=== PATIENT | female | born 1995 | race Caucasian/White ===

== ENCOUNTER 2020-01-11 00:54 | Outpatient (CLI) | payer OTHER, SELFPAY ==
[2020-01-11 18:05] LABS: SARS-CoV-2 RNA PCR Negative
== END 2020-01-11 00:55 | disposition home or self-care (01) ==
LOC: ANHCOVIDDT 00:55
PROVIDERS: PCP Internal Medicine; Visit Provider Internal Medicine Gastroenterology
DX: Z01.818 Encounter for other preprocedural examination (principal); Z11.59 Encounter for screening for other viral diseases
CPT/HCPCS: 87635; C9803; U0003

== ENCOUNTER 2020-01-14 03:50 | Day surgery (SDC) | payer OTHER, SELFPAY ==
[2020-01-09 13:26] VITALS: BMI 21.2
[2020-01-14 07:15] VITALS: BP 113/81; PULSE 72; RESP 16; TEMP 37.1; O2SAT 99
--- NOTE | 2020-01-14 07:30 | PM.HPGS ---
History of Present Illness History of Present Illness Consent: Risks, benefits, and alternatives have been discussed and questions answered. Patient agrees to proceed with procedure. Chief complaint: REFLUX Narrative: Annalise Renteria is a 24 year old W female referred for gastroscopy secondary to a history of gastroesophageal reflux disease. Patient has primary complaint is she has episodes of persistent coughing which will lead to a gagging and intermittent vomiting. She does not have classical history of reflux with substernal burning postprandially. She was placed on Pepcid without significant improvement. She states these episodes can occur any time the day if she eats that she does any concur which impresses or teeth. She has had no hematemesis. Denies any nonsteroidal inflammatory drugs. She denies any dysphagia odynophagia. No weight loss. [facility] Past Medical History Medical History Anxiety Asthma Bipolar depression Depression Factor 5 Leiden mutation, heterozygous Stomach problems Surgical History Surgical History [place] teeth removed Social History Social History (Updated 01/10/20 @ 07:41 by Radhika Carrillo CMA) Smoking status: Never smoker Second hand tobacco smoke exposure: No Alcohol intake: current Meds Home Medications and Allergies Home Medications Medication Instructions Recorded Confirmed Type lamotrigine 100 mg tablet 200 mg PO DAILY 07/24/19 01/09/20 History clonazepam 1 mg tablet 1 mg PO BID tablet 11/29/19 01/09/20 History famotidine 20 mg tablet 20 mg PO DAILY #14 tablet 11/29/19 01/09/20 Rx trazodone 100 mg tablet 100 mg PO DAILY tablet 11/29/19 01/14/20 History aspirin 81 mg PO DAILY 01/09/20 01/09/20 History sertraline 50 mg PO DAILY 01/09/20 01/09/20 History Allergies Allergy/AdvReac Type Severity Reaction Status Date / Time azithromycin Allergy Unknown Unknown Verified 01/14/20 07:13 cefuroxime Allergy Unknown Unknown Verified 01/14/20 07:13 No Known Allergies Allergy Unverified 03/28/17 08:53 Vital Signs Vital Signs - 24 hr 01/14/20 07:15 Temperature 37.1 C Pulse Rate 72 Respiratory Rate 16 Blood Pressure 113/81 Pulse Oximetry 99 Exam Const: Orientation/consciousness: patient oriented x3 Resp: Auscultation: clear to auscultation bilaterally Cardio: Rate: regular rate Rhythm: regular rhythm Heart sounds: no murmurs GI: GI Palp: Yes Soft to palpation, No Tenderness to palpation present (GI), Yes No hepatosplenomegaly present and No Palpable mass present Auscultation: normal bowel sounds Neuro: General: patient oriented x3 and no focal motor deficits Extrem: General: no pedal edema Assessment and Plan Additional Plan EGD for evaluation of coughing and gagging questionable gastroesophageal reflux disease.
[2020-01-14] MEDS: LACTATED RINGERS 1,000 ML 150 ML IV CONT ×2 (07:38→08:52)
--- NOTE | 2020-01-14 08:25 | P.PNAN_ITS ---
Anes - Initial Pre Proc Eval Procedure: Operation Date: 01/14/20 08:30 Proposed Procedures p Esophagogastroduodenoscopy - Kenneth Contreras MD Date/Time: 01/14/20 08:25 Surgeon: Kenneth Contreras MD Pre Op Diagnosis: REFLUX Patient Data Age: 24 Gender: F Height: 5 ft 7 in Weight: 61.9 kg Last Vital Signs Temp 98.7 F 01/14/20 07:15 Pulse 72 01/14/20 07:15 Resp 16 01/14/20 07:15 BP 113/81 01/14/20 07:15 Pulse Ox 99 01/14/20 07:15 Allergies Allergy/AdvReac Type Severity Reaction Status Date / Time azithromycin Allergy Unknown Unknown Verified 01/14/20 07:13 cefuroxime Allergy Unknown Unknown Verified 01/14/20 07:13 No Known Allergies Allergy Unverified 03/28/17 08:53 Home Medications Medication Instructions Recorded Confirmed Type lamotrigine 100 mg tablet 200 mg PO DAILY 07/24/19 01/09/20 History clonazepam 1 mg tablet 1 mg PO BID tablet 11/29/19 01/09/20 History famotidine 20 mg tablet 20 mg PO DAILY #14 tablet 11/29/19 01/09/20 Rx trazodone 100 mg tablet 100 mg PO DAILY tablet 11/29/19 01/14/20 History aspirin 81 mg PO DAILY 01/09/20 01/09/20 History sertraline 50 mg PO DAILY 01/09/20 01/09/20 History Patient hx anesthesia problems: none Family hx anesthesia problems: none PMFSH Past Medical History Medical History Anxiety Asthma Bipolar depression Depression Factor 5 Leiden mutation, heterozygous Stomach problems Surgical History Surgical History [place] teeth removed Social History Social History (Updated 01/10/20 @ 07:41 by Radhika Carrillo CMA) Smoking status: Never smoker Second hand tobacco smoke exposure: No Alcohol intake: current Anes - Eval Final PreProcedure Day of Procedure 01/14/20 08:25 Patient weight: normal Heart: regular rate and rhythm Lungs: clear to auscultation Airway: Mallampati scale class II Neurological: alert and oriented Last oral intake: >/= 8 hours ASA classification: II Emergent: no Anesthetic plan: proceed Anesthesia type and monitoring: general GIVS and standard monitoring Informed Consent: The patient's anesthetic plan and its attendant risks and benefits were discussed with the patient/family/POA. Questions were solicited and answers provided to the satisfaction of the patient/family/POA.
[2020-01-14] MEDS: BENZOCAINE (*SP) 60 ML SPRAY CAN (HURRICAINE) 1 SPRAY MUCOUS MEM (08:42)
[2020-01-14 08:53] VITALS: BP 88/54; PULSE 62; RESP 24; O2SAT 95
[2020-01-14 09:03] VITALS: BP 85/48; PULSE 61; RESP 22; O2SAT 96
[2020-01-14 09:13] VITALS: BP 104/66; PULSE 51; RESP 18; O2SAT 100
[2020-01-14 09:23] VITALS: BP 112/64; PULSE 51; RESP 20; O2SAT 100
== END 2020-01-14 09:32 | disposition home or self-care (01) ==
PROVIDERS: PCP Internal Medicine; Visit Provider Internal Medicine Gastroenterology
PROC: 0DJ08ZZ Inspection of Upper Intestinal Tract, Via Natural or Artificial Opening Endoscopic (ICD-10-PCS; CPT 43235; principal; 2020-01-14 08:30)
DX: K21.9 Gastro-esophageal reflux disease without esophagitis (principal); K29.50 Unspecified chronic gastritis without bleeding; D68.51 Activated protein C resistance; J45.909 Unspecified asthma, uncomplicated; F31.9 Bipolar disorder, unspecified; F41.9 Anxiety disorder, unspecified; Z79.82 Long term (current) use of aspirin
CPT/HCPCS: 43239; 87081; 88305; J2704; J7120

== ENCOUNTER 2020-01-15 15:17 | Emergency (ER) | payer OTHER, SELFPAY ==
[2020-01-15 15:26] VITALS: BP 109/71; PULSE 79; RESP 16; TEMP 36.7; O2SAT 98
--- NOTE | 2020-01-15 15:55 | ED.GENADULT ---
HPI - General Adult General Chief complaint: Wound/Laceration Stated complaint: FB R HAND/COUGH/SNEEZING/EARACHE Time Seen by Provider: 01/15/20 15:35 Source: patient and RN notes reviewed Mode of arrival: ambulatory Limitations: no limitations History of Present Illness HPI narrative: 24 year old female who presents to [facility] with complaints of sore throat, coughing and sneezing which started today and also complaints of possible foreign body to palm of her right hand from fall about a month ago. Patient had endoscopy yesterday and states that she was told that soreness in her throat along with sneezing and cough are not related to procedure. Patient has seen PCP in regards to right hand in the past 2 weeks also. Patient states that she also has some ear pressure and and sinus drainage. Patient has had recent negative COVID test.Patient admits to history of seasonal allegies. MD complaint: sore throat, sneezing, coughing, ear pressure and sinus drainage. Onset (ago): day(s) (1) Location: mouth Radiation: non-radiation Severity: mild Quality: aching Relieving factors: none Exacerbating factors: other (swallowing) Associated symptoms: cough and other (sneezing) Treatments prior to arrival: none Related Data Home Medications Medication Instructions Recorded Confirmed clonazepam 1 mg tablet 1 mg PO BID tablet 11/29/19 01/15/20 trazodone 100 mg tablet 100 mg PO DAILY tablet 11/29/19 01/15/20 sertraline 50 mg PO DAILY 01/09/20 01/15/20 Allergies Allergy/AdvReac Type Severity Reaction Status Date / Time azithromycin Allergy Unknown Unknown Verified 01/14/20 07:13 cefuroxime Allergy Unknown Unknown Verified 01/14/20 07:13 No Known Allergies Allergy Unverified 03/28/17 08:53 Review of Systems Review of Systems: Narrative: CONSTITUTIONAL: Denies fever, chills, or sweats. EYES: Denies visual changes, redness, or discharge. ENT: positive reported rhinorrhea, congestion, sore throat, or otalgia. CARDIOVASCULAR: Denies chest pain, palpitations, or edema. RESPIRATORY:reported cough denies dyspnea. GASTROINTESTINAL: Denies abdominal pain, nausea, vomiting, or diarrhea. GENITOURINARY: Denies dysuria or hematuria. SKIN: Denies rash or itching, scabbed area pinpoint in size to proximal palm area of right hand. MUSCULOSKELETAL: Denies back pain, joint pain, or myalgia. NEUROLOGIC: Denies headache, numbness, or weakness. PSYCHIATRIC:positive anxiety or depression. All systems reviewed & are unremarkable except as noted in HPI and below PMFSH Past Medical History Medical History Anxiety Asthma Bipolar depression Depression Factor 5 Leiden mutation, heterozygous Stomach problems Surgical History Surgical History [place] teeth removed Family History Family History Mother Patient's mother is in good health Family history of hemochromatosis Father Patient's father is in good health Social History Social History Smoking status: Never smoker Second hand tobacco smoke exposure: No Alcohol intake: current Gender identity (if verbalized by the patient): Female Comments At time of signature, agree with nursing past medical, surgical, social and family history. There is no relevant family history pertinent to the presenting complaint Exam Narrative: Exam Narrative: GENERAL: Well-appearing, well-nourished, and in no acute distress. HEAD: Normocephalic, atraumatic. EYES: PERRLA and EOMI. ENT: Nares light red, clear rhinorrhea no epistaxis. Mucous membranes moist.TM's normal with good light refles, throat mild redness no exudates or acute tonsil enlargement NECK: Supple.no lymphadenopathy CHEST: Clear to auscultation. No respiratory distress.SAO2 98% on room air. HEART: Regular rate and rhythm. No murmu
== END 2020-01-15 16:08 | disposition home or self-care (01) ==
PROVIDERS: Emergency Provider Registered Nurse; PCP Internal Medicine
DX: J31.0 Chronic rhinitis (principal); J32.9 Chronic sinusitis, unspecified; F41.9 Anxiety disorder, unspecified; F32.9 Major depressive disorder, single episode, unspecified; D68.51 Activated protein C resistance
CPT/HCPCS: 87081; 87880; 99213; G0463

== ENCOUNTER 2020-02-29 07:36 | Outpatient (CLI) | payer OTHER, SELFPAY ==
--- NOTE | 2020-03-05 18:06 | WPDPFTINT ---
PFT Interpretation PFT Interpretation: DOS:02/29/2020] REQUESTING: Juliette Mensah NP REASON FOR TESTING: fatigue, dyspnea PULMONARY FUNCTION TESTS Results are reproducible. The patient declined plethysmography due to anxiety. She took a Xanax immediately before testing. The tech reported good effort from the patient. Spirometry: FEV1 is 55%, moderately decreased. FVC 53%, moderately decreased. FEV1% is normal. No change with bronchodilator. Lung volumes: NOT PERFORMED Diffusion: DLCO 69%, mildly decreased. Flow volume loop: Overall small in size, suggestive of restriction. IMPRESSION: Spirometry shows a moderate ventilatory defect without airflow obstruction, and this abnormal finding may be due to restriction. However, without plethysmography, restriction cannot be assessed. Lung volumes were not obtained due to the patient having anxiety with inability to get in the body box. Mild diffusion impairment. Clinical correlation will be challenging without lung volumes. Consider having the patient take an anxiolytic earlier if this test is repeated. She took Xanax immediately before testing, which may not have given the medication time to work. Consider chest CT, 6 minute walk, and echo to assist in evaluation of her fatigue and dyspnea especially if repeat testing is not an option for her. Missy Willis MD
== END 2020-02-29 07:37 | disposition home or self-care (01) ==
PROVIDERS: PCP Internal Medicine; Visit Provider Clinical Nurse Specialist
DX: R06.02 Shortness of breath (principal)
CPT/HCPCS: 94060; 94729

== ENCOUNTER 2020-03-28 15:58 | Outpatient (CLI) | payer OTHER, SELFPAY ==
--- NOTE | ~2020-03-28 | CT_ITS ---
EXAMINATION: CT chest w con DATE: 03/28/2020 16:44 INDICATION: Shortness of breath TECHNIQUE: Transaxial computed tomographic images of the chest were obtained after the administration of 75 cc of Omnipaque 350 intravenous contrast. The dose-length product (DLP) was 118.36 mGy-cm. Ite rative reconstruction was used. COMPARISON: None FINDINGS: The lungs are free of acute opacities. There is no pleural effusion or pneumothorax. No pat hologically enlarged thoracic lymph nodes are identified. The heart size is normal. The visualized os seous structures are unremarkable. IMPRESSION: 1. No acute cardiopulmonary abnormality. Reviewed, dictated and finalized at location A.
== END 2020-03-28 15:59 | disposition home or self-care (01) ==
PROVIDERS: PCP Internal Medicine; Visit Provider Clinical Nurse Specialist
DX: R06.00 Dyspnea, unspecified (principal)
CPT/HCPCS: 71260; Q9967

== ENCOUNTER 2020-04-17 07:38 | Outpatient (CLI) | payer OTHER, SELFPAY ==
--- NOTE | 2020-04-17 07:58 | ECHO_ITS ---
Patient Info Name: Annalise Renteria Age: 24 years : 1995 Gender: Female Ht: 67 in Wt: 125 lbs BSA: 1.63 m2 HR: 68 bpm BP: 107 / 76 mmHg Technical Quality: Good Exam Date: 04/17/2020 8:36 AM Exam Location: [facility] Patient Status: Outpatient Admit Date: 04/17/2020 Staff Ordering Physician: Juliette Mensah Gasoline Attendant: Ana Luisa Pickering RDCS Attending Provider: Juliette Mensah Referring Physician: Makenna VILLAFUERTE; Exam Type: CA echo doppler color flow Study Info Indications - sob Complete two-dimensional, color flow and Doppler transthoracic echocardiogram is performed. Summary 1. Complete two-dimensional, color flow and Doppler transthoracic echocardiogram is performed. 2. Left ventricular chamber dimension is normal. 3. Left ventricular systolic function is normal, estimated at 60-65%. 4. The left ventricular diastolic function is normal. 5. E/e' 7 is not elevated. 6. There is trace tricuspid valve regurgitation. 7. No pulmonary hypertension, estimated pulmonary arterial systolic pressure is 29 mmHg. 8. There is trace pulmonic regurgitation. Left Ventricle E/e' 7 is not elevated. Left ventricular chamber dimension is normal. Left ventricular systolic function is normal, estimated at 60-65%. The left ventricular diastolic function is normal. Right Ventricle Right ventricular chamber dimension is normal. Right ventricular systolic function is normal. Left Atria Left atrial chamber dimension is normal. Right Atria Right atrial chamber dimension is normal. Aortic Valve The aortic valve is trileaflet. There is no aortic valve stenosis. There is no aortic valve regurgitation. Pulmonic Valve There is trace pulmonic regurgitation. Mitral Valve There is no mitral valve stenosis. There is no mitral valve regurgitation. Tricuspid Valve There is trace tricuspid valve regurgitation. No pulmonary hypertension, estimated pulmonary arterial systolic pressure is 29 mmHg. Pericardium/Pleural There is no pericardial effusion. Inferior Vena Cava Normal inferior vena cava with >50% collapse upon inspiration consistent with normal right atrial pressure, 5 mmHg. Aorta The aortic root size at the sinus of Valsalva is normal. Left Ventricular Outflow Tract Name Value Normal LVOT 2D LVOT Diameter 2.0 cm LVOT Doppler LVOT Peak Gradient 4 mmHg LVOT Mean Gradient 2 mmHg LVOT VTI 20 cm LVOT VTI/AV VTI Ratio 0.9 LVOT Stroke Volume 63 ml LVOT CO 13.3 l/min LVOT CI 8.1 l/min/m2 Pulmonic Valve Name Value Normal RVOT Doppler RVOT Peak Gradient 3 mmHg PV Do
--- NOTE | 2020-04-23 10:46 | WPDSIXMINUTE ---
Six Minute Walk Six Minute Walk: The patients O2 sats started at 100% and dropped as low as 93% Total walk distance 487.68 meters conclusion: This patient does not qualify for home oxygen therapy
== END 2020-04-17 07:39 | disposition home or self-care (01) ==
LOC: ANHPFT 07:40
PROVIDERS: PCP Internal Medicine; Visit Provider Clinical Nurse Specialist
DX: R06.02 Shortness of breath (principal)
CPT/HCPCS: 93306; 94618

== ENCOUNTER 2021-04-13 13:14 | Outpatient (CLI) | payer BC, SELFPAY ==
--- NOTE | ~2021-04-13 | XR_ITS ---
XR chest 2V DATE: 04/13/2021 14:04 INDICATION: Cough TECHNIQUE: Upright 2 views COMPARISON: 03/28/2020 CT chest 10/06/11 two-view chest FINDINGS: There is mild patchy infiltrate in the left lower lung, consistent with pneumonia. Normal heart size. No hilar or mediastinal enlargement. No pleural effusion or pneumothorax. IMPRESSION: Patchy left lower lung infiltrate, likely due to pneumonia Reviewed, dictated and finalized at location B.
== END 2021-04-13 13:15 ==
PROVIDERS: PCP Internal Medicine; Visit Provider Nurse Practitioner
DX: R05.9 Cough, unspecified (principal); R91.8 Other nonspecific abnormal finding of lung field
CPT/HCPCS: 71046

== ENCOUNTER 2022-02-25 08:22 | Outpatient (CLI) | payer OTHER, SELFPAY ==
--- NOTE | ~2022-02-25 | NM_ITS ---
EXAMINATION: NM hepatobiliary wo pharm DATE: 02/25/2022 10:51 INDICATION: Abdominal pain and bloating. COMPARISON: CT abdomen and pelvis 04/07/2017 TECHNIQUE: 4.9 mCi Tc-99m mebrofenin (Choletec) was administered intravenously. Scintigraphic images of the abdomen were obtained for one hour. Then, the patient drank 8 oz Ensure, and imaging was cont inued for 60 minutes. FINDINGS: There is normal clearance of radiotracer from the blood pool. There is homogeneous tracer u ptake by the liver. Activity progresses to the bowel and gallbladder. Gallbladder ejection fraction (GBEF) was 95%. Note that with this technique, normal GBEF >= 33%. IMPRESSION: 1. Normal hepatobiliary scintigraphy. Reviewed, dictated and finalized at location A.
== END 2022-02-25 08:23 | disposition home or self-care (01) ==
PROVIDERS: PCP Internal Medicine; Visit Provider Nurse Practitioner Family
DX: R10.9 Unspecified abdominal pain (principal); R14.0 Abdominal distension (gaseous)
CPT/HCPCS: 78226; A9537

== ENCOUNTER 2024-12-15 14:15 | Inpatient (IN) | payer OTHER, SELFPAY ==
[2024-12-15] VITALS (9 sets, daily range): BP systolic 114–124; BP diastolic 70–84; PULSE 108–129; RESP 18–25; TEMP 37–37.1; O2SAT 94–100; BMI 21.3
--- NOTE | ~2024-12-15 | XR_ITS ---
Supine and upright views of the abdomen Clinical history: Gastric distention Findings: NG tube in place. Bowel gas pattern is nonspecific. No evidence for obstruction or free air . No abnormal mass lesion or calcification is seen. Urinary bladder distended with contrast material. Osseous structures are intact. Impression: Nonspecific bowel gas pattern. NG tube in place. Reviewed, dictated and finalized at [facility]. Impression: Nonspecific bowel gas pattern. NG tube in place.
--- NOTE | ~2024-12-15 | XR_ITS ---
CHEST RADIOGRAPH, PA AND LATERAL CLINICAL HISTORY: chest pain, sob 2 DAYS . COMPARISON: 04/13/2021 TECHNIQUE: PA and lateral views of the chest. FINDINGS Significant gaseous distention of the stomach extending into the air-filled esophagus. The cardiomediastinal silhouette is partially obscured. Large right-sided pleural effusion is present with adjacent consolidation. The left hemithorax is largely clear. IMPRESSION: Large right-sided pleural effusion with adjacent consolidation. Reviewed, dictated and finalized at location A.
--- NOTE | ~2024-12-15 | XR_ITS ---
Portable chest x-ray Comparison: 12/15/2024 Clinical History: Pleural effusion Findings: NG tube in place. Large right pleural effusion present. There is mild haziness left lung b ase. Cardiomediastinal silhouette is stable. Bones and soft tissues are unremarkable. Impression: Large right pleural effusion. Minimal haziness left lung base, nonspecific. NG tube in place. Reviewed, dictated and finalized at location . Impression: Large right pleural effusion. Minimal haziness left lung base, nonspecific. NG tube in place.
--- NOTE | ~2024-12-15 | XR_ITS ---
Portable chest x-ray Comparison: 12/16/2024 Clinical History: Worsening shortness of breath Findings: There is complete opacification the right hemithorax, compatible with large pleural effusi on and mild leftward mediastinal shift. Left lung essentially clear. NG tube in place. Cardiomediast inal silhouette is stable. Bones and soft tissues are unremarkable. Impression: Whiteout of the right hemithorax, most compatible with large pleural effusion. NG tube in place. Reviewed, dictated and finalized at location M. Impression: Whiteout of the right hemithorax, most compatible with large pleural effusion. NG tube in place.
--- NOTE | ~2024-12-15 | CT_ITS ---
CLINICAL INDICATION: Right-sided chest pain. COMPARISON: 03/28/2020 and 04/07/2017 . TECHNIQUE: An enhanced CT of the abdomen and pelvis was performed utilizing multislice spiral [employer] ue reconstructed at 5 mm slice thickness. Coronal and sagittal reconstructions were performed. This CT examination was performed utilizing dose reduction techniques. DLP: 500 mGy-cm FINDINGS/OBSERVATIONS: Lung: Heterogeneous consolidation encompassing the entirety of the right middle lobe. Large right-sided pleural effusion with adjacent compressive atelectasis. The left hemithorax demonstrates interstitial thickening but is otherwise clear. The heart is of normal size, without pericardial effusion. Mediastinum: Calcified lymph nodes within the mediastinum suggesting prior granulomatous disease. No pathologically enlarged or morphologically suspicious lymph nodes are identified within the medias tinum, bilateral axilla, within the soft tissues of the anterior chest wall. Soft tissues of the chest: Unremarkable. Bones of the chest: No acute fracture. No lytic or blastic lesions are identified. Liver: The liver enhances homogeneously and is enlarged measuring 20 cm in longitudinal dimension. Gallbladder and biliary system: The gallbladder is only minimally distended and otherwise unremarkable. Pancreas: The pancreas enhances homogeneously, without ductal dilatation. Spleen: Spleen enhances homogeneously and is not enlarged Kidneys: The bilateral kidneys enhance symmetrically without hydronephrosis or renal calculi. Adrenal glands: Unremarkable. Gastrointestinal tract: Massive gaseous distention of the stomach without a clear source of obstruction. The air-filled esophagus is also distended. Trace fecal stasis. Appendix: The appendix is not definitively visualized. However, no pericecal inflammatory change is identified suggest the presence of acute appendicitis. Vasculature: No calcified atherosclerotic disease is present. No aneurysmal dilatation. Lymph nodes: Scattered nonpathologically enlarged lymph nodes within the root of the mesentery and deep in the pel vis. Pelvic structures: The bladder is decompressed and otherwise unremarkable. Uterus is anteverted and anteflexed Body wall and musculoskeletal: Small fat-containing umbilical hernia. No significant degenerative disease within the lower thoracic and lumbar spines. IMPRESSION: Right middle lobe pneumonia with a large right-sided pleural effusion. Massive gaseous distention of the stomach Reviewed, dictated and finalized at location A.
--- NOTE | ~2024-12-15 | XR_ITS ---
Exam: Abdomen 1V HISTORY: post NG placement COMPARISON: Plain film evaluation of the chest performed 3 hours earlier TECHNIQUE: Supine images of the lower chest and upper abdomen FINDINGS: Nasogastric tube projects over the distal esophagus for which advancement of approximately 12 cm is r ecommended for optimal radiographic placement. IMPRESSION: Nasogastric tube at the level of the distal esophagus for which advancement of approximately 12 cm is recommended for optimal radiographic placement. Reviewed, dictated and finalized at location A.
--- OUTSIDE RECORDS SUMMARY | 2024-12-15 14:17 | XMS_ITS | Clinical Summary ---
Author Organization [facility] Address [address] [place] [address] Care Team Providers Care Course Developer Name Role Phone Victorino Briseno DO Primary Care Provider [phone]- [phone] Allergies No known active allergies Medications medroxyPROGESTERo ne (DEPO-PROVERA) 150 mg/mL injection INJECT INTRAMUSCULARLY EVERY 3 MONTHS 09/20/19 18 Active lamoTRIgine (LaMICtal) 25 mg tablet TAKE 1 TABLET BY MOUTH EVERY DAY AT 7PM 0 05/08/20 19 Active lithium 300 mg capsule TAKE 1 CAPSULE OPENED AND SPRINKLED ON FOOD TWICE A DAY 06/11/20 20 Active ALPRAZolam (NIRAVAM) 1 mg disintegrating tablet Take 1 mg by mouth 3 (three) times a day 05/23/20 20 Active dextroamphetamine -amphetamine (ADDERALL) 5 mg tablet Take 5 mg by mouth 2 (two) times a day 05/22/20 20 Active aspirin 81 mg enteric coated tablet Take 81 mg by mouth daily Active fluticasone propionate (FLOVENT HFA) 220 mcg/actuation inhaler Inhale 2 puffs 2 (two) times a day Rinse mouth with water after use. Do not swallow. 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 Attention deficit disorder of adult with hyperac tivity 06/14/2013 Atypical migraine 06/14/2013 Psychophysiological insomnia 05/08/2013 Increased frequency of urination 03/14/2012 Encounter for preventive health examination 02/02 Surgical History Surgery Date Site/Laterality Comments NO PAST SURGERIES Medical History Medical History Date Comments Hx Other Medical ADD; Comments: [facility] 04/26/2014 - Hx Other Medical narcolepsy; Com ments: [facility] 04/26/2014 - Hx Other Medical migraines; Comm ents: [facility] 04/26/2014 - Hx Other Medical palpitations; C omments: [facility] 04/26/2014 - Personal history of other di seases of the respiratory system History of asthma - (Added b y TW Conv) Personal history of other me ntal and behavioral disorders History of depression - (Add ed by TW Conv) ADHD (attention deficit hype ractivity disorder) Anxiety Depression Migraines Family History Medical History Relation Name Comments Mental illness Father Other Father Alive and well; Clotting disorder Mother Other Mother Alive and well; Sleep apnea Mother Sleep apnea; Other Sister 2 Alive and well; Relation Name Status Comments Father Alive Mother Alive Sister 1 Alive Sister 2 Social History Tobacco Use Types Packs/Day Years Used Date Smoking Tobacco: Never Smokeless Tobacco: Never Alcohol Use Standard Drinks/Week Comments No 0 (1 standard drink = 0.6 oz pur e alcohol) Personal Safety Answer Date Recorded Getting School Help Needed Not on file 09/02 Comments Unknown Sex and Gender Information Value Date Recorded Sex Assigned at Not on file 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 Gender Identity Not on file Sexual Orientation Not on file Obstetrics History Last Filed Vital Signs Vital Sign Reading Time Taken Comments Blood Pressure 106/68 07/30/2020 11:42 AM STRAP MAKING MACHINE OPERATOR Pulse 70 07/30/2020 11:42 AM STRAP MAKING MACHINE OPERATOR Temperature 36.9 C (98.5 F) 07/30/2020 11:42 AM STRAP MAKING MACHINE OPERATOR Respiratory Rate 18 07/30/2020 11:42 AM STRAP MAKING MACHINE OPERATOR Oxygen Saturation 99% 07/30/2020 11:42 AM STRAP MAKING MACHINE OPERATOR Inhaled Oxygen Concentration - - Weight 61.2 kg (135 lb) 11/27/2021 9:24 AM CDT Height 170.2 cm (5' 7) 11/27/2021 9:24 AM CDT Body Mass Index 21.14 11/27/2021 9:24 AM CDT Plan of Treatment Not on file Insurance [facility] Address: [id number] [place] [address] [facility]/PPO Address: [id number] [place] [id number] [facility] Care Teams Course Developer Relationship Specialty Start Date End Date Victorino Briseno DO PCP - General 05/08/19
--- OUTSIDE RECORDS SUMMARY | 2024-12-15 14:17 | XMS_ITS | Referral Summary ---
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 Gender Identity Not on file Sexual Orientation Not on file Last Filed Vital Signs Vital Sign Reading Time Taken Comments Blood Pressure 106/68 07/30/2020 11:42 AM ORDER SCHEDULE CLERK Pulse 70 07/30/2020 11:42 AM ORDER SCHEDULE CLERK Temperature 36.9 C (98.5 F) 07/30/2020 11:42 AM ORDER SCHEDULE CLERK Respiratory Rate 18 07/30/2020 11:42 AM ORDER SCHEDULE CLERK Oxygen Saturation 99% 07/30/2020 11:42 AM ORDER SCHEDULE CLERK Inhaled Oxygen Concentration - - Weight 61.2 kg (135 lb) 11/27/2021 9:24 AM CDT Height 170.2 cm (5' 7) 11/27/2021 9:24 AM CDT Body Mass Index 21.14 11/27/2021 9:24 AM CDT Plan of Treatment Not on file Insurance [facility] [place] [address] [place] [address] HMO Care Teams Learning And Development Specialist Relationship Specialty Start Date End Date Victorino Briseno DO PCP - General 05/08/19
--- OUTSIDE RECORDS SUMMARY | 2024-12-15 14:18 | XMS_ITS ---
Author Organization [facility] [employer] [facility] ([address]) Address [address] [place] [address] Care Team Providers Care Qa Developer Name Role Phone Van Briseno Primary Care Provider Unavailab Long Roche Unavailable [phone] [facility], Provider Unavailable Unavailab le REASON FOR VISIT [facility] Conversion Encounter Medications Medication SIG (Take, Route, Frequency, Duration) Notes Start Date End Date Status LaMICtal 200 MG 1 tab(s) orally 2 ti mes a day for 30 day(s) Active Aspirin 81 MG 1 tab(s) orally once a day for 30 day(s) Active Remeron 15 MG 1 tab(s) orally once a day (at bedtime) for 30 day(s) Active Fluticasone Propionate 50 MCG/ACT 2 spray(s) in each nostril BID for 30 day(s) 02/15/2022 Not-Taking Fluticasone Propionate 50 MCG/ACT 2 spray(s) in each nostril BID for 30 day(s) 08/17/2022 Active Xanax 1 MG 1 tab(s) orally ever y 8 hours Active Encounters Encounter Location Date Provider Diagnosis [facility] [address] [address] 12/17/2023 Provider [facility] Chronic rhinitis J31.0 Assessments Encounter Date Diagnosis (ICD Code) Assessment Notes Treatment Notes Treatment Clinical Notes Section Notes 12/17/2023 Chronic rhinitis (ICD-10 - J31.0) Plan Of Treatment Medication Medication Name Sig Start Date Stop Date Notes Fluticasone Propionate 50 MCG/ACT 2 spray(s) in each nostril BID for 30 day(s) 08/17/2022 Progress Notes * Quynh OHARAhDOB:[birth year] (29 yo F)Acc No.[id number]:12/17/2023 Patient: Annalise WOODRUFF Provider: Travon Zuluaga :1995 A ge:28 Y S ex:Female Date:12/17/2023 Address:[facility] [address] [place], [id number] Pcp:Van Briseno Subjective: * Chief Complaints: * 1 . Mult[facility] To Medispan Conversion Encounter. * Medical History: * Medications: T aking Xanax 1 MG Tablet 1 tab(s) orally every 8 hours , Taking LaMICtal 200 MG Tablet 1 tab(s) orally 2 times a day , Taking Aspirin 81 MG Tablet Delayed Release 1 tab(s) orally once a day , Taking Remeron 15 MG Tablet 1 tab(s) orally once a day (at bedtime) , Not-Taking/PRN Fluticasone Propionate 50 MCG/ACT Suspension 2 spray(s) in each nostril BID Objective: * Vitals: Assessment: * Assessment: 1. C hronic rhinitis - J31.0 Plan: * Treatment: * Billing Information: * Visit Code: * Procedure Codes: * Electronic signature of Prov ider [facility] on 12/15/2024 at 02:17 PM CDT Sign off status: Pending * Provider: Travon Zuluaga Date: 12/17/2023 Generated for Pito ga/Oskar/Nila on: 12/15/2024 02:17 PM CDT
--- OUTSIDE RECORDS SUMMARY | 2024-12-15 14:18 | XMS_ITS | Clinical Summary ---
Author Organization [facility] Address [address] [place] [address] Care Team Providers Care Sql Data Architect Name Role Phone Slrl, None Given Primary Care Provider Unavailab le Allergies No known active allergies Medications lamoTRIgine (LAMICTAL) 200 MG tablet Take 1 tablet (200 mg total) by mouth 2 (two) times a day. Active nortriptyline (PAMELOR) 10 MG capsule Take 1 capsule (10 mg total) by mouth nightly. Active clonazePAM (KLONOPIN) 0.25 MG disintegrating tablet Take 1 tablet (0.25 mg total) by mouth 2 (two) times a day as needed for anxiety. Active escitalopram oxalate (LEXAPRO) 5 MG tablet Take 1 tablet (5 mg total) by mouth daily. Active medroxyPROGESTERo ne (DEPO-PROVERA) 150 mg/mL injectionIndicati ons:Encounter for surveillance of injectable contraceptive Inject 1 mL (150 mg total) intramuscularly every 3 (three) months. 1 mL 1 10/03/19 25 Active Active Problems Problem Noted Date Diagnosed Date Encounter for well woman exam 12/06/2023 Encounters Date Type Department Care Team Description 10/29/2024 8:30 AM CDT Nurse Only [facility] [address] [place] [address] Debbie Dillon MA Encounter for surveillance of injectable contraceptive (Primary Dx) 10/08/2024 Results Follow-Up [facility] [address] [place] [address] Anneliese Diaz MD IMAGE GUIDED PAP W/ REFLEX TO HPV WHEN ASC-U 10/02/2024 11:00 AM CDT Office Visit [facility] [address] [place] [address] Anneliese Diaz MD Well woman exam (Primary Dx); Encounter for surveillance of injectable contraceptive from Last 3 Months Family History Medical History Relation Name Comments Diabetes type II Maternal Aunt Diabetes type II Maternal Grandmother Diabetes type II Paternal Uncle Relation Name Status Comments Maternal Aunt Alive Maternal Grandmother Paternal Uncle Alive Social History Tobacco Use Types Packs/Day Years Used Date Smoking Tobacco: Never Smokeless Tobacco: Never Tobacco Cessation:Counseling Given: Not Answered Alcohol Use Standard Drinks/Week Comments Yes 0 (1 standard drink = 0.6 oz pur e alcohol) Favian Suspected Abuse - Outpatient Smart[facility] m Answer Date Recorded Has fear of safety No 10/02/2024 Has experience threats/phys violence No 10/02/2024 Comments No Sex and Gender Information Value Date Recorded Sex Assigned at Not on file Legal Sex Female 10:51 AM CDT Gender Identity Not on file Sexual Orientation Not on file Last Filed Vital Signs Vital Sign Reading Time Taken Comments Blood Pressure 120/74 10/02/2024 11:00 AM CDT Pulse - - Temperature - - Respiratory Rate - - Oxygen Saturation - - Inhaled Oxygen Concentration - - Weight 59.7 kg (131 lb 9.6 oz) 10/02/2024 11:00 AM CDT Height 170.2 cm (5' 7) 12/06/2023 12:56 PM CDT Body Mass Index 20.61 12/06/2023 12:56 PM CDT Plan of Treatment Upcoming Encounters Date Type Department Care Team (Late st Contact Info) Description 01/14/2025 8:30 AM CDT Nurse Only [facility] [address] [place] [address] 10/04/2025 9:00 AM CDT Office Visit [facility] [address] [place] [address] Anneliese Diaz MD [address] [place] [address] Health Maintenance Due Date Last Done Comments Hepatitis C Screen 1994 Td/Tdap# 1994 HPV Vaccine (1 - 3-dose series) 2009 Social Drivers of Health# 2012 Hepatitis B Vaccine (1 of 3 - 19+ 3-dose series) 2013 COVID-19 Vaccine (2023-2 5 season) 2024 Influenza Vaccine (Season Ended) 2025 Cervical Cancer Screening vi a Pap Smear 10/03/2027 10/02/2024 Pneumococcal Vaccine: Pediat rics (0 to 5 Years) and At-Risk Patients (6 to 49 Years) Aged Out No longer eligi ble based on patient's age to complete this topic Procedures Procedure Name Priority Date/Time Associated Diagnosis Comments IGP, RFX APTIMA HPV ASCU Routine 10/02/2024 10:19 AM CDT Well woman exam from Last 3 Months Results * IMAGE GUIDED PAP W/ REFLEX TO HPV WHEN ASC-U (10/02/2024 10:19 AM CDT) Interpretation [facility] DEL[facility] Comment:NEGATIVE FOR INTRAEP ITHELIAL LESION OR MALIGNANCY. Category: NIL [facility] Comment:Negative for Intraep ithelial Lesion Adequacy: ENDO [facility] Comment: Satisfactory for evaluation. Endocervical and/or squamous metaplastic cells (endocervical component) are present. Clinician provided ICD10: [facility] Comment:[id number] Performed by: [facility] Comment:Abigail Swartz, Cyto logist (ASCP) Note: [facility] Comment: The Pap smear is a screening test designed to aid in the detection of premalignant and malignant conditions of the uterine cervix. It is not a diagnostic procedure and should not be used as the sole means of detecting cervical cancer. Both false-positive and false-negative reports do occur. Test Methodology: [facility] Comment: This liquid based ThinPrep(R) pap test was screened with the use of an image guided system. . [facility] Comment: The HPV DNA reflex criteria were not met with this specimen result therefore, no HPV testing was performed. CERVIX UTERI STRUCTURE / Unknown 10/02/2024 10:19 AM CDT 10/01/2024 11:00 PM CDT Comment:CERVIX Narrative [facility] - 10/08/2024 9:07 AM CDT Performed at: - [facility] [address], [place] [id number] Assembler Adjuster: Armando Marshall MD, Phone: [phone] Specimen Comment: No. of containers..01 ThinPrep Vial us Anneliese Diaz MD PATHOLOGY/CYTOLOGY ORDERABLES Ed ited Result - Final [facility] [address] [place] [address], [place] from Last 3 Months Care Teams Sql Data Architect Relationship Specialty Start Date End Date Slrl, None Given PCP - General 12/05/23
--- OUTSIDE RECORDS SUMMARY | 2024-12-15 14:18 | XMS_ITS | Patient Health Record ---
Author Organization [facility] [place] ([address]) Address [address] [facility] [address] [place] [address] Care Team Providers Care Pump Station Operator Name Role Phone Van Briseno Primary Care Provider Unavailab Long Roche Unavailable [phone] [employer], Provider Unavailable Unavailab le Allergies No Known Allergies Reason For Referral No Information Medications Medication SIG (Take, Route, Frequency, Duration) Notes Start Date End Date Status FLUTICASONE NASAL 50 mcg/inh 2 spray(s) in each nostril BID for 30 day(s) 02/15/2022 Not-Taking REMERON 15 mg 1 tab(s) orally once a day (at bedtime) for 30 day(s) Active ASPIRIN 81 mg 1 tab(s) orally once a day for 30 day(s) Active FLUTICASONE NASAL 50 mcg/inh 2 spray(s) in each nostril BID for 30 day(s) 08/17/2022 Active Xanax 1 MG 1 tab(s) orally ever y 8 hours Active LaMICtal 200 MG 1 tab(s) orally 2 ti mes a day for 30 day(s) Active Aspirin 81 MG 1 tab(s) orally once a day for 30 day(s) Active Remeron 15 MG 1 tab(s) orally once a day (at bedtime) for 30 day(s) Active LAMICTAL 200 mg 1 tab(s) orally 2 ti mes a day for 30 day(s) Active Fluticasone Propionate 50 MCG/ACT 2 spray(s) in each nostril BID for 30 day(s) 02/15/2022 Not-Taking XANAX 1 mg 1 tab(s) orally ever y 8 hours Active Fluticasone Propionate 50 MCG/ACT 2 spray(s) in each nostril BID for 30 day(s) 08/17/2022 Active Social History Tobacco Use: Social History Observation Description Date Details (start date - stop date) Never Smoker NA - NA Smoking Smart Form: Question Answer Notes Are you a: never smoker Problems Problem Type SNOMED Code ICD Code Onset Dates Problem Status W/U Status Risk Notes Problem Chronic rhinitis (59746662) Chronic rhinitis (J31.0) Active confirmed Problem Hypertrophy of nasal turbinates (96677487) Hypertrophy of nasal turbinates (J34.3) Active confirmed Problem Syncope and collapse (347235930) Syncope and collapse (R55) Active confirmed Problem Lactose intolerance, unspecified (E73.9) Active confirmed Encounters Encounter Location Date Provider [facility] [address] 12/17/2023 Provider Esther Chronic rhinitis J31.0 Assessments Encounter Date Diagnosis (ICD Code) Assessment Notes Treatment Notes Treatment Clinical Notes Section Notes 12/17/2023 Chronic rhinitis (ICD-10 - J31.0) Plan Of Treatment No Information Insurance Providers Payer Name Payer Address Payer Phone Subscriber Number Group Number Insured Name Patient Relationship to Insured Coverage Start Date Coverage End Date Aetna Choice POS II [address] [place] [address] [id number] Annalise Renteria Self - patient is the insured Medical (General) History Surgical History Surgery Date(Month/Year)
--- OUTSIDE RECORDS SUMMARY | 2024-12-15 14:18 | XMS_ITS | Clinical Summary ---
Author Organization [facility] Address [address] [place] [address] Care Team Providers Care Capital Markets Specialist Name Role Phone Farhana Toro MD Primary Care Provider Source Comments [facility] [employer],non-owned Affiliates and Associated Physician Practices is amultiple site organization consisting of ambulatory clinics and hospital sitesin [place], [place], [place] and [place]. This disclosure is being madepursuant to the Care Everywhere program and may not contain all information available regarding this patient. Last updated 18.[facility] [employer] Allergies No known active allergies Medications * Be aware that medications may not be up to date on this document. Alwaysverify current medications with the patient. medroxyPROGESTE Andi (DEPO-PROVERA) 150 MG/ML vial INJECT INTRAMUSCULARLY EVERY 3 MONTHS 0 09/20/19 18 Active ALPRAZolam (XANAX) 0.25 MG tablet Active oxybutynin (DITROPAN) 5 MG/5ML syrupIndication s:Urinary Frequency Take 10 mL by mouth once daily Can increase up to twice daily. Reasons: Frequent Urination 180 mL 5 05/16/20 18 Active nitrofurantoin monohyd macro crystals (MACROBID) 100 MG capsuleIndicati ons:Urinary tract infection without hematuria, site unspecified Take 1 capsule by mouth as directed Take one tab after intercourse 10 capsule 3 05/16/20 18 Active Active Problems No known active problems Family History Medical History Relation Name Comments Depression Mother Relation Name Status Comments Mother Social History Tobacco Use Types Packs/Day Years Used Date Smoking Tobacco: Never Smokeless Tobacco: Never Alcohol Use Standard Drinks/Week Comments No 0 (1 standard drink = 0.6 oz pur e alcohol) Comments Unknown Sex and Gender Information Value Date Recorded Sex Assigned at Not on file Legal Sex Female 5:41 AM CANDY ROLLING MACHINE OPERATOR Gender Identity Not on file Sexual Orientation Not on file Last Filed Vital Signs Vital Sign Reading Time Taken Comments Blood Pressure 104/64 05/16/2018 10:50 AM CANDY ROLLING MACHINE OPERATOR Pulse 78 05/16/2018 10:50 AM CANDY ROLLING MACHINE OPERATOR Temperature 37.2 C (99 F) 05/16/2018 10:50 AM CANDY ROLLING MACHINE OPERATOR Respiratory Rate 16 02/11/2017 3:22 PM CDT Oxygen Saturation 98% 05/16/2018 10:50 AM CANDY ROLLING MACHINE OPERATOR Inhaled Oxygen Concentration - - Weight 55.3 kg (122 lb) 05/16/2018 10:50 AM CANDY ROLLING MACHINE OPERATOR Height 170.2 cm (5' 7) 05/16/2018 10:50 AM CANDY ROLLING MACHINE OPERATOR Body Mass Index 19.11 05/16/2018 10:50 AM CANDY ROLLING MACHINE OPERATOR Plan of Treatment Health Maintenance Due Date Last Done Comments HIV SCREENING 2009 HEPATITIS C SCREENING 09/08/2012 DTAP/TDAP/TD VACCINES (1 - Tdap) 2013 HEPATITIS B VACCINE (1 of 3 - 19+ 3-dose series) 2013 COVID-19 VACCINE (1 - 2023-2 5 season) 2024 DEPRESSION SCREENING 07/04/2024 INFLUENZA VACCINE (Season Ended) 2025 ZOSTER VACCINE (1 of 2) 2044 HIB VACCINE Aged Out No longer eligi ble based on patient's age to complete this topic HPV VACCINE Aged Out No longer eligi ble based on patient's age to complete this topic MENINGOCOCCAL (Group B) VACC INE SHARED DECISION-MAKING Aged Out No longer eligibl e based on patient's age to complete this topic MENINGOCOCCAL GROUPS A/C/Y/W VACCINE Aged Out No longer eligible b ased on patient's age to complete this topic PNEUMOCOCCAL VACCINE Aged Out No long er eligible based on patient's age to complete this topic Care Teams Capital Markets Specialist Relationship Specialty Start Date End Date Farhana Toro MD [address] [place] [address] PCP - General 03/24/10
--- NOTE | 2024-12-15 14:32 | ECG_ITS ---
Test Date: 2024-12-15 14:25:40 Measurements Intervals [place] Rate: 114 P: 40 [place]: 155 QRS: 22 QRSD: 77 T: -13 QT: 303 QTc: 418 Interpretive Statements SINUS TACHYCARDIA POSSIBLE LEFT ATRIAL ENLARGEMENT CONSIDER INFERIOR INFARCT, AGE INDETERMINATE BASELINE ARTIFACT- I, II, III, AVR, AVL, AVF, V3-V5 ABNORMAL ECG No previous ECG available for comparison Electronically Signed On 12-15-2024 15:01:50 CDT by Peterson Garza D.O.
[2024-12-15 14:39] LABS: Basophils Absolute Auto 0.1 K/mm3 (0.0-0.1); Basophils Percent Auto 0.6 % (0.2-1.2); Eosinophils Absolute Auto 0.1 K/mm3 (0-0.3); Eosinophils Percent Auto 0.9 % (0-4.4); Hematocrit 33.5 % (37.0-47.0); Hemoglobin 10.7 g/dL (12.0-15.0); Immature Granulocyte Absolute 0.07 K/mm3 (0.00-0.031); Immature Granulocyte Percent A 0.5 % (0-0.5); Lymphocytes Absolute Auto 2.54 K/mm3 (0.9-3.2); Lymphocytes Percent Auto 17.8 % (18.3-44.2); Mean Corpuscular HGB Conc 31.9 g/dl (32-36); Mean Corpuscular Hemoglobin 28.5 pg (26-34); Mean Corpuscular Volume 89.3 fl (80-100); Mean Platelet Volume 8.6 fl (7.4-10.4); Monocytes Absolute Auto 0.9 K/mm3 (0.1-0.6); Monocytes Percent Auto 6.1 % (2.6-8.5); Neutrophils Absolute Auto 10.5 K/mm3 (1.3-6.7); Neutrophils Percent Auto 74.1 % (45.5-73.1); Platelet Count Result 326 k/mm3 (150-375); Red Blood Count 3.75 M/mm3 (4.2-5.4); Red Cell Distribution Width 12.6 % (11.5-14.5); White Blood Count 14.2 K/mm3 (4.5-10.0)
--- OUTSIDE RECORDS SUMMARY | 2024-12-15 14:39 | XMS_ITS | Referral Summary ---
Author Organization [facility] Address [address] [place] [address] Care Team Providers Care Global Category Manager Name Role Phone Victorino Briseno DO Primary Care Provider [phone] Allergies No known active allergies Medications medroxyPROGESTERo [...] on file Legal Sex Female 3:27 AM SUPERVISOR RESEARCH KENNEL Gender Identity Not on file Sexual Orientation Not on file Last Filed Vital Signs Vital Sign Reading Time Taken Comments Blood Pressure 106/68 07/30/2020 11:42 AM SUPERVISOR RESEARCH KENNEL Pulse 70 07/30/2020 11:42 AM SUPERVISOR RESEARCH KENNEL Temperature 36.9 C (98.5 F) 07/30/2020 11:42 AM SUPERVISOR RESEARCH KENNEL Respiratory Rate 18 07/30/2020 11:42 AM SUPERVISOR RESEARCH KENNEL Oxygen Saturation 99% 07/30/2020 11:42 AM SUPERVISOR RESEARCH KENNEL Inhaled Oxygen Concentration - - Weight 61.2 kg (135 lb) 11/27/2021 9:24 AM CDT Height 170.2 cm (5' 7) 11/27/2021 9:24 AM CDT Body Mass Index 21.14 11/27/2021 9:24 AM CDT Plan of Treatment Not on file Insurance AETNA [facility] HMO [facility] [place] [address] [place] [address] HMO Care Teams Global Category Manager Relationship Specialty Start Date End Date Victorino Briseno DO PCP - General 05/08/19
--- OUTSIDE RECORDS SUMMARY | 2024-12-15 14:39 | XMS_ITS | Clinical Summary ---
Author Organization [facility] Address [address] [place] [address] Phone Care Team Providers Care Game Breeding Farm Manager Name Role Phone Farhana Toro MD Primary Care Provider [phone] Allergies No known active allergies Medications lamoTRIgine (LaMICtal ODT) 200 mg Tablet, Rapid Dissolve Take 200 mg by mouth 2 times daily. 11/04/19 22 Active methylphenidate HCl (RITALIN) 10 mg tablet Take 10 mg by mouth daily. 12/23/19 22 Active mirtazapine (REMERON SolTab) 15 mg Tablet, Rapid Dissolve DISSOLVE 1 TABLET BY MOUTH EVERYDAY AT BEDTIME 10/24/19 22 Active aspirin (ECOTRIN EC) 81 mg Tablet, Delayed Release (E.C.) Take 81 mg by mouth daily. Active ALPRAZolam (XANAX) 0.25 mg disintegrating tablet alprazolam 0.25 mg disintegrating tablet Active medroxyPROGESTERon e (DEPO-PROVERA) 150 mg/mL Suspension INJECT ONCE EVERY 3 MONTHS 11/25/19 22 Active eletriptan (RELPAX) 40 mg Tablet Take at onset of headache. may repeat in 2 hours; max dose 80mg in 24 hours. max 2 days per week 9 Tablet 6 01/20/20 22 Active indomethacin (INDOCIN SR) 75 mg Extended Release capsule 1 tab qday x5 days, 1 tab bid x5 days, 1 tab tid x5 days then stop 30 Capsule 01/20/20 22 Active Active Problems Problem Noted Date Diagnosed Date Memory loss, short term 02/17/2015 Social History Tobacco Use Types Packs/Day Years Used Date Smoking Tobacco: Never Smokeless Tobacco: Never Alcohol Use Standard Drinks/Week Comments Yes 1 (1 standard drink = 0.6 oz pur e alcohol) socially Comments No Sex and Gender Information Value Date Recorded Sex Assigned at Not on file Legal Sex Female 3:02 PM CDT Gender Identity Not on file Sexual Orientation Not on file Last Filed Vital Signs Vital Sign Reading Time Taken Comments Blood Pressure 98/60 01/19/2022 8:07 AM CDT Pulse 64 01/19/2022 8:07 AM CDT Temperature - - Respiratory Rate - - Oxygen Saturation 99% 01/19/2022 8:07 AM CDT Inhaled Oxygen Concentration - - Weight 58.7 kg (129 lb 6.4 oz) 01/19/2022 8:07 A M CDT Height 170.2 cm (5' 7) 01/19/2022 8:07 AM CDT Body Mass Index 20.27 01/19/2022 8:07 AM CDT Plan of Treatment Health Maintenance Due Date Last Done Comments DTAP/TDAP/TD VACCINES (1 - Tdap) 2013 HEPATITIS B VACCINES (1 of 3 - 19+ 3-dose series) 2013 HPV/Cotest (21-29) 09/14/2015 INFLUENZA VACCINE (#1) 2024 CERVICAL CANCER SCREENING 2024 HPV/Cotest (30-65) 2024 PAP SMEAR 2024 HPV VACCINES Aged Out No longer eligi ble based on patient's age to complete this topic Insurance AETNA CHOICE POS II Care Teams Game Breeding Farm Manager Relationship Specialty Start Date End Date Farhana Toro MD [address] [place] [id number] PCP - General Family Practice 02/13/15
--- OUTSIDE RECORDS SUMMARY | 2024-12-15 14:39 | XMS_ITS | Clinical Summary ---
Author Organization [facility] Address [address] [place] [address] Care Team Providers Care Scraper Meat Name Role Phone Farhana Toro MD Primary Care Provider [phone] Source Comments [facility] [email or web address],non-owned Affiliates and Associated Physician Practices is amultiple site organization consisting of ambulatory clinics and hospital sitesin [place], [place], [place] and [place]. This disclosure is being madepursuant to the Care Everywhere program and may not contain all information available regarding this patient. Last updated 18.[facility] [email or web address] Allergies No known active allergies Medications * [...] on file Legal Sex Female 5:41 AM BUILDING TRADES INSTRUCTOR Gender Identity Not on file Sexual Orientation Not on file Last Filed Vital Signs Vital Sign Reading Time Taken Comments Blood Pressure 104/64 05/16/2018 10:50 AM BUILDING TRADES INSTRUCTOR Pulse 78 05/16/2018 10:50 AM BUILDING TRADES INSTRUCTOR Temperature 37.2 C (99 F) 05/16/2018 10:50 AM BUILDING TRADES INSTRUCTOR Respiratory Rate 16 02/11/2017 3:22 PM CDT Oxygen Saturation 98% 05/16/2018 10:50 AM BUILDING TRADES INSTRUCTOR Inhaled Oxygen Concentration - - Weight 55.3 kg (122 lb) 05/16/2018 10:50 AM BUILDING TRADES INSTRUCTOR Height 170.2 cm (5' 7) 05/16/2018 10:50 AM BUILDING TRADES INSTRUCTOR Body Mass Index 19.11 05/16/2018 10:50 AM BUILDING TRADES INSTRUCTOR Plan of Treatment Health Maintenance Due Date [...] age to complete this topic Care Teams Scraper Meat Relationship Specialty Start Date End Date Farhana Toro MD [address] [place] [address] PCP - General 03/24/10
--- OUTSIDE RECORDS SUMMARY | 2024-12-15 14:39 | XMS_ITS | Clinical Summary ---
Author Organization [facility] Address [address] [place] [address] Care Team Providers Care Derrick Engineer Name Role Phone Slrl, None Given Primary [...] Description 10/29/2024 8:30 AM CDT Nurse Only [facility] [address] [place] [address] Debbie Dillon MA Encounter for surveillance of injectable contraceptive (Primary Dx) 10/08/2024 Results Follow-Up [facility] [address] [place] [address] Anneliese Diaz MD IMAGE GUIDED PAP W/ REFLEX TO HPV WHEN ASC-U 10/02/2024 11:00 AM CDT Office Visit [facility] [address] [place] [address] Anneliese Daiz MD Well woman exam (Primary Dx); Encounter [...] Description 01/14/2025 8:30 AM CDT Nurse Only [facility] [address] [place] [address] 10/04/2025 9:00 AM CDT Office Visit [facility] [address] [place] [address] Anneliese Diaz MD [address] [place] [address] Health Maintenance Due Date Last Done Comments [...] 10:19 AM CDT) Interpretation [facility] Comment:NEGATIVE FOR INTRAEP ITHELIAL LESION OR MALIGNANCY. Category: NIL [facility] Comment:Negative for Intraep ithelial Lesion Adequacy: ENDO [facility] Comment: Satisfactory for evaluation. Endocervical and/or squamous metaplastic cells (endocervical component) are present. Clinician provided ICD10: [facility] Comment:[id number] Performed by: [facility] Comment:Abigail Swartz, Cyto logist (ASCP) Note: [facility] Comment: The Pap smear is a screening test designed to aid in the detection of premalignant and malignant conditions of the uterine cervix. It is not a diagnostic procedure and should not be used as the sole means of detecting cervical cancer. Both false-positive and false-negative reports do occur. Test Methodology: [facility] Comment: This liquid based ThinPrep(R) pap test was screened with the use of an image guided system. . [facility] Comment: The HPV DNA reflex criteria were not met with this specimen result therefore, no HPV testing was performed. CERVIX UTERI STRUCTURE / Unknown 10/02/2024 10:19 AM CDT 10/01/2024 11:00 PM CDT Comment:CERVIX Narrative [facility] - 10/08/2024 9:07 AM CDT [facility] at[facility] [address], [place] [id number] Hogshead Head Matcher: Armando Marshall MD, Phone: [phone] Specimen Comment: No. of containers..01 ThinPrep Vial us Anneliese Diaz MD PATHOLOGY/CYTOLOGY ORDERABLES Ed ited Result - Final [facility] [address] [place] [address], [place] from Last 3 Months Care Teams Derrick Engineer Relationship Specialty Start Date End Date Slrl, None Given PCP - General 12/05/23
--- OUTSIDE RECORDS SUMMARY | 2024-12-15 14:39 | XMS_ITS | Clinical Summary ---
Author Organization [facility] Address [address] [place] [address] Care Team Providers Care Box Spring Frame Builder Name Role Phone Victorino Briseno DO Primary Care Provider [phone]- [phone] Allergies No known active allergies Medications medroxyPROGESTERo [...] Date Comments Hx Other Medical ADD; Comments: [facility] 04/26/2014 - Hx Other Medical narcolepsy; Com ments: [facility] 04/26/2014 - Hx Other Medical migraines; Comm ents: [facility] 04/26/2014 - Hx Other Medical palpitations; C omments: [facility] 04/26/2014 - Personal history of other di [...] on file Legal Sex Female 3:27 AM [employer] SWEE[employer] Gender Identity Not on file Sexual Orientation Not on file Obstetrics History Last Filed Vital Signs Vital Sign Reading Time Taken Comments Blood Pressure 106/68 07/30/2020 11:42 AM TRACTOR SWEEPER DRIVER Pulse 70 07/30/2020 11:42 AM TRACTOR SWEEPER DRIVER Temperature 36.9 C (98.5 F) 07/30/2020 11:42 AM TRACTOR SWEEPER DRIVER Respiratory Rate 18 07/30/2020 11:42 AM TRACTOR SWEEPER DRIVER Oxygen Saturation 99% 07/30/2020 11:42 AM TRACTOR SWEEPER DRIVER Inhaled Oxygen Concentration - - Weight 61.2 kg (135 lb) 11/27/2021 9:24 AM CDT Height 170.2 cm (5' 7) 11/27/2021 9:24 AM CDT Body Mass Index 21.14 11/27/2021 9:24 AM CDT Plan of Treatment Not on file Insurance [facility] HMO [facility] HMO/PPO Address: [id number] [place] [address] [facility] HMO/PPO Address: [id number] [place] [id number] [facility] Care Teams Box Spring Frame Builder Relationship Specialty Start Date End Date Victorino Briseno DO PCP - General 05/08/19
[2024-12-15 14:50] LABS: INR 1.3; Prothrombin Time 16.5 Seconds (11.1-14.7)
[2024-12-15 14:51] LABS: Alanine Aminotransferase 22 U/L (6-35); Albumin Level 3.9 g/dL (3.5-5.1); Alkaline Phosphatase 98 U/L (38-126); Anion Gap 12 mmol/L (4-12); Aspartate Amino Transferase 30 U/L (14-36); Bilirubin,Total 0.4 mg/dL (0.2-1.3); Blood Urea Nitrogen 8 mg/dL (7-17); Calcium 8.5 mg/dL (8.4-10.2); Carbon Dioxide 25 mmol/L (22-30); Chloride 102 mmol/L (98-107); Estimated CRCL calculation 119 ml/min; Estimated Glomerular Filt Rate > 60; Glucose 135 mg/dL (65-110); Lipase 25 U/L (23-300); Partial Thromboplastin Time 31.8 Seconds (22.3-36.8); Potassium 3.6 mmol/L (3.4-5.0); Sodium 139 mmol/L (137-145); Total Protein 8.5 g/dL (6.3-8.2)
[2024-12-15 15:02] LABS: Troponin I < 0.012 ng/mL (0.000-0.034)
[2024-12-15] MEDS: FAMOTIDINE 20 MG/2 ML VIAL IV PUSH ×2 (15:16→20:30)
[2024-12-15] MEDS: PANTOPRAZOLE SODIUM IV 40 MG VIAL IV PUSH (15:19)
[2024-12-15] MEDS: SODIUM CHLORIDE 0.9% INJ 10 ML (15:21)
[2024-12-15] MEDS: HYDROmorphone HCL INJ (*CRX) 2 MG/ML VIAL 1 MG IV PUSH (15:22)
[2024-12-15] MEDS: ASPIRIN 81 MG CHEWABLE TABLET 324 MG PO (15:25)
[2024-12-15 15:28] LABS: BEDSIDEPREGUCG Negative (Negative)
--- NOTE | 2024-12-15 15:59 | ED.GENADULT ---
HPI - General Adult General Chief complaint: Shortness of Breath/Dyspnea Stated complaint: hurts to breathe Time Seen by Provider: 12/15/24 14:21 History of Present Illness HPI narrative: 29-year-old female presents to the emergency department for evaluation for tachycardia and increased shortness of breath with associated back pain and abdominal pain. Patient reports he has had cough and back pain for a few weeks. Patient began having worsening shortness of breath over the last few days. Upon arrival emergency department patient does appear to be uncomfortable and mildly distressed secondary to the pain. Related Data Home Medications ?Medication ?Instructions ?Recorded ?Confirmed ?Last Taken ?Type aspirin 81 mg tablet,delayed 81 mg PO DAILY 05/30/20 01/06/23 Unknown History release (Adult Low Dose Aspirin) alprazolam 1 mg tablet (Xanax) 0.5 mg PO TID PRN 04/10/21 01/06/23 Unknown History lamotrigine 200 mg tablet 200 mg PO BID 04/29/22 01/06/23 Unknown History (Lamictal) dextroamphetamine-amphetamine 20 20 mg PO DAILY 09/24/22 01/06/23 Unknown History mg tablet (Adderall) Allergies Allergy/AdvReac Type Severity Reaction Status Date / Time azithromycin Allergy Unknown Unknown Verified 12/15/24 14:33 cefuroxime Allergy Unknown Unknown Verified 12/15/24 14:33 Review of Systems Review of Systems: All systems reviewed & are unremarkable except as noted in HPI and below PMFSH Past Medical History Medical History (Updated 12/15/24 @ 16:59 by Eliseo lSade MD) On Depo-Provera for contraception Irritable bowel syndrome Change in bowel habits Abdominal pain Factor 5 Leiden mutation, heterozygous Stomach problems Bipolar depression Anxiety Asthma Depression Surgical History Surgical History [place] teeth removed Family History Family History Mother Family history of hemochromatosis Breast cancer diagnosed at age 52 Father No problems noted. Other Breast cancer 4 aunts, 3 diagnosed in 40s and 1 at 38, 1 cousin at age 26 Uterine cancer aunt Social History Social History Smoking status: Never smoker Second hand tobacco smoke exposure: No Alcohol intake: current Alcohol use details: social Substance use: current Substance use type: marijuana Lack of Transportation: No Lack of Food: Never True Current Housing: I Have Housing Concerned About Future Housing: No Difficulty Paying Gas/Electric Bills: No Difficulty Paying for Meds: No Currently Unemployed: No Education: High School Diploma/GED Difficulty w/ Childcare or Family Care: No Living arrangements: with family Occupation/Education: occupation Gender identity (if verbalized by the patient): Female Sexual Orientation (if Verbalized by the Patient): Straight or Heterosexual Spiritual care concerns: No Exam Narrative: APPEARANCE: Uncomfortable appearing HEAD: normocephalic, atraumatic. EYES: PERRLA/EOMI, conjunctivae clear. NOSE: Normal no drainage EARS:TMS clear with good light reflex. THROAT: Pharynx clear, no exudate. NECK: Supple. No adenopathy, no masses. RESPIRATORY: Airway patent, respirations nonlabored. Clear to auscultation bilaterally, no rales, rhonchi, wheezing. CARDIOVASCULAR: Regular rate and rhythm without murmurs rubs or gallops. ABDOMINAL: Diffusely tender abdomen MUSCULOSKELETAL: Moves all extremities. Strength/ROM intact, No edema, No calf tenderness. NEURO: Alert. Cranial nerves II through XII intact. Good gait. Good coordination SKIN: Warm, dry. Normal Color Course Vital Signs Vital signs: Vital Signs Pulse Rate 129 H 12/15/24 14:19 Respiratory Rate 20 12/15/24 14:19 Blood Pressure 118/84 12/15/24 14:19 Pulse Oximetry 100 12/15/24 14:19 Oxygen Delivery Room Air 12/15/24 14:19 Pulse Rate 118 H 12/15/24 16:22 Respiratory Rate 18 12/15/24 16:22 Blood Pressure 114/70 12/15/24 16:22 Pulse Oximetry 94 12/15/24 16:22 Oxygen Delivery Room Air 12/15/24 14:38 Medical Decision Making [facility] Narrative Medical decision making narrative: 29-year-old female presents emergency department for evaluation for complaints back pain abdominal pain and shortness of breath. Patient is currently afebrile but does have a leukocytosis of 14.2 and hemoglobin of 10.7. Patient has an INR of 1.3. Patient has no significant abnormalities on her CMP and patient had a negative troponin. Patient's T bili AST ALT alk-phos was negative. Patient's urine test was negative. Chest x-ray showed Large right-sided pleural effusion with adjacent consolidation. CT chest abdomen pelvis was ordered and does confirm a right middle lobe pneumonia with pleural effusion. Patient also does have a large gastric distension with no evidence of obstruction. Patient denies any prior history of gastroparesis denies any new medications including gLP 1 inhibitors. Patient does have history of a azithromycin and cefuroxime allergies but she is unsure what these allergies are. Patient was started on meropenem for concern for possible aspiration pneumonia and limited antibiotic choices due to her underlying allergies. NG tube was placed due to the severe distention of the stomach and concern for aspiration pneumonia as the underlying etiology for her illness. Case discussed with hospitalist and patient will be admitted to the IMU. Patient was updated on results of the workup and was comfortable plan for the admission. Differential Diagnosis Differential Diagnosis: Colitis, diverticulitis, appendicitis, cholecystitis, pneumonia, aspiration pneumonia, COVID, RSV, influenza, gastroparesis, bowel obstruction Vital Signs Vital Signs: Vital Signs Pulse Rate 129 H 12/15/24 14:19 Respiratory Rate 20 12/15/24 14:19 Blood Pressure 118/84 12/15/24 14:19 Pulse Oximetry 100 12/15/24 14:19 Oxygen Delivery Room Air 12/15/24 14:19 Pulse Rate 118 H 12/15/24 16:22 Respiratory Rate 18 12/15/24 16:22 Blood Pressure 114/70 12/15/24 16:22 Pulse Oximetry 94 12/15/24 16:22 Oxygen Delivery Room Air 12/15/24 14:38 Lab Data Lab results reviewed: Yes I reviewed the patient's lab results. 12/15/24 14:34 12/15/24 14:34 Labs: Lab Results 12/15/24 12/15/24 Range/Units 14:34 15:26 WBC 14.2 H (4.5-10.0) K/mm3 RBC 3.75 L (4.2-5.4) M/mm3 Hgb 10.7 L (12.0-15.0) g/dL Hct 33.5 L (37.0-47.0) % MCV 89.3 (80-100) fl MCH 28.5 (26-34) pg MCHC 31.9 L (32-36) g/dl RDW 12.6 (11.5-14.5) % Plt Count 326 (150-375) k/mm3 MPV 8.6 (7.4-10.4) fl Immature Gran % (Auto) 0.5 (0-0.5) % Neut % (Auto) 74.1 H (45.5-73.1) % Lymph % (Auto) 17.8 L (18.3-44.2) % [place] % (Auto) 6.1 (2.6-8.5) % Eos % (Auto) 0.9 (0-4.4) % Baso % (Auto) 0.6 (0.2-1.2) % Lymph # (Auto) 2.54 (0.9-3.2) K/mm3 [place] # (Auto) 0.9 H (0.1-0.6) K/mm3 Eos # (Auto) 0.1 (0-0.3) K/mm3 Baso # (Auto) 0.1 (0.0-0.1) K/mm3 Abs Immat Gran (auto) 0.07 H (0.00-0.031) K/mm3 Absolute Neuts (auto) 10.5 H (1.3-6.7) K/mm3 Absolute Nucleated RBC 0.000 (0.0-0.012) K/mm3 Nucleated RBC % 0.0 (0.0-0.2) % PT 16.5 H (11.1-14.7) Seconds INR 1.3 APTT 31.8 (22.3-36.8) Seconds Sodium 139 (137-145) mmol/L Potassium 3.6 (3.4-5.0) mmol/L Chloride 102 (98-107) mmol/L Carbon Dioxide 25 (22-30) mmol/L Anion Gap 12 (4-12) mmol/L BUN 8 (7-17) mg/dL Creatinine 0.56 L (0.7-1.0) mg/dL Estim Creat Clear Calc 119 ml/min Estimated GFR > 60 (59 - ) Glucose 135 H (65-110) mg/dL Calcium 8.5 (8.4-10.2) mg/dL Total Bilirubin 0.4 (0.2-1.3) mg/dL AST 30 (14-36) U/L ALT 22 (6-35) U/L Alkaline Phosphatase 98 (38-126) U/L Troponin I < 0.012 (0.000-0.034) ng/mL Total Protein 8.5 H (6.3-8.2) g/dL Albumin 3.9 (3.5-5.1) g/dL Lipase 25 (23-300) U/L POC Urine HCG, Qual Negative (Negative) Imaging Data Radiologist's impression: Impressions Chest X-Ray 12/15/24 15:07 IMPRESSION: Large right-sided pleural effusion with adjacent consolidation. Chest/Abdomen/Pelvis CT 12/15/24 16:30 IMPRESSION: Right middle lobe pneumonia with a large right-sided pleural effusion. Massive gaseous distention of the stomach Discharge Plan Discharge Clinical Impression: Pneumonia, Pleural effusion, Aspiration pneumonia, Gastric distention Patient Disposition: Still a Patient Condition: Stable
--- NOTE | 2024-12-15 17:24 | ECG_ITS ---
Test Date: 2024-12-15 17:33:12 Measurements Intervals [place] Rate: 119 P: 38 NH: 152 QRS: 47 QRSD: 79 T: -15 QT: 302 QTc: 425 Interpretive Statements SINUS TACHYCARDIA POSSIBLE LEFT ATRIAL ENLARGEMENT CONSIDER INFERIOR INFARCT, AGE INDETERMINATE BORDERLINE ST-T WAVE ABNORMALITY- ANTERIOR LEADS BASELINE ARTIFACT- II ABNORMAL ECG Compared to ECG 12/15/2024 14:25:40 NO SIGNIFICANT CHANGE Electronically Signed On 12-15-2024 20:57:41 CDT by Peterson Garza D.O.
[2024-12-15] MEDS: LACTATED RINGERS 1,000 ML 125 ML IV CONT (17:59)
[2024-12-15] MEDS: MEROPENEM 1 GM/NS 100 ML 1 GM/100 ML BAG IVPB (18:00)
[2024-12-15 18:33] LABS: Troponin I < 0.012 ng/mL (0.000-0.034)
--- NOTE | 2024-12-15 18:33 | PC.NURSE ---
1800: NG tube advanced as per CHARBEL ALFARO. 55 @ Angel garcía.
--- NOTE | 2024-12-15 19:04 | ADMGEN ---
This patient, Annalise Renteria, was admitted to IMU Room 201-01. Patient/family oriented to hospital policies and general routines including ID bracelet, bed and alarms, visiting hours, pain management, procedures, bathroom and other care routines, personal items, smoking policy, room service/diet, and visiting hours. Information on how to activate the Rapid Response Team has been discussed. Patient/Family are encouraged to report perceived risks to care and to ask questions if they do not understand what they are told or what they should do. Assessment completed and documented in the chart. Pt is resting comfortable in bed with HOB elevated and NG-Tube in place. Bed in low and locked position. Call light in reach. Will continue to monitor. Angi Freeman RN
[2024-12-15] MEDS: HYDROmorphone HCL INJ (*CRX) 2 MG/ML VIAL 0.5 MG IV PUSH (20:32)
[2024-12-15 21:06] LABS: Troponin I < 0.012 ng/mL (0.000-0.034)
--- NOTE | 2024-12-15 21:12 | P.HP_ITS ---
H&P: HPI History of Present Illness Date/Time: 12/15/24 21:12 Chief Complaint: Shortness of breath and chest wall pain Narrative: 29-year-old female with past medical history of factor 5 deficiency bipolar and GI issues presents the hospital with shortness of breath and chest wall pain. Patient states that she has had a cough and back pain for about a week. She started having shortness of breath over the last few days. She also complains of stomach pain and chronic constipation. Patient states that due to the stomach pains with unable to eat or drink well today. She denies fevers chills. Lab work shows leukocytosis of 14.2, hemoglobin of 10.7 no known history of anemia, troponins are negative, CT chest abdomen pelvis show right middle lobe pneumonia with a large right-sided pleural effusion and massive gas distention of stomach. EKG shows sinus tachycardia at 1119 Review of Systems Review of Systems: 12 systems were reviewed and are negativ e except for as per HPI. [facility] Past Medical History Medical History (Updated 12/15/24 @ 23:12 by Sandra Vargas APRN) On Depo-Provera for contraception Irritable bowel syndrome Change in bowel habits Abdominal pain Factor 5 Leiden mutation, heterozygous Stomach problems Bipolar depression Anxiety Asthma Depression Surgical History Surgical History [place] teeth removed Family History Family History (Updated 12/15/24 @ 18:58 by Bing Freeman RN) Mother Breast cancer diagnosed at age 52 Family history of hemochromatosis Diabetes mellitus Father Diabetes mellitus Other Breast cancer 4 aunts, 3 diagnosed in 40s and 1 at 38, 1 cousin at age 26 Uterine cancer aunt Social History Social History Smoking status: Never smoker Second hand tobacco smoke exposure: No Alcohol intake: current Alcohol use details: social Substance use: never Substance use type: does not use Do You Feel Safe in your Home?: Yes Lack of Transportation: No Lack of Food: Never True Current Housing: I Have Housing Concerned About Future Housing: No Difficulty Paying Gas/Electric Bills: No Difficulty Paying for Meds: No Currently Unemployed: No Education: High School Diploma/GED Difficulty w/ Childcare or Family Care: No Living arrangements: with family Occupation/Education: occupation Gender identity (if verbalized by the patient): Female Sexual Orientation (if Verbalized by the Patient): Straight or Heterosexual Spiritual care concerns: No Meds Home Medications and Allergies Home Medications ?Medication ?Instructions ?Recorded ?Confirmed ?Type lamotrigine 200 mg tablet 200 mg PO BID 04/29/22 12/15/24 History (Lamictal) dextroamphetamine-amphetamine 20 20 mg PO DAILY 09/24/22 12/15/24 History mg tablet (Adderall) dicyclomine 10 mg capsule 10 mg PO TID PRN abdominal 12/17/22 12/15/24 Rx discomfort #90 caps loratadine 10 mg tablet (Claritin) 10 mg PO DAILY #30 tabs 01/06/23 12/15/24 Rx medroxyprogesterone 150 mg/mL 150 mg IM [id number] #1 mL 08/24/23 12/15/24 Rx intramuscular suspension clonazepam 0.25 mg disintegrating 0.25 mg PO PRN 12/15/24 12/15/24 History tablet escitalopram oxalate 10 mg tablet 10 mg PO DAILY 12/15/24 12/15/24 History nortriptyline 25 mg capsule 50 mg PO .bedtime 12/15/24 12/15/24 History Allergies Allergy/AdvReac Type Severity Reaction Status Date / Time azithromycin Allergy Unknown Unknown Verified 12/15/24 18:40 cefuroxime Allergy Unknown Unknown Verified 12/15/24 18:40 Vital Signs Vital Signs - 24 hr 12/15/24 14:19 12/15/24 14:38 12/15/24 14:38 Temperature Pulse Rate 129 H 119 H Respiratory Rate 20 Blood Pressure 118/84 Pulse Oximetry 100 100 Oxygen Delivery Room Air Room Air 12/15/24 15:18 12/15/24 16:22 12/15/24 18:17 Temperature Pulse Rate 120 H 118 H 114 H Respiratory Rate 25 H 18 18 Blood Pressure 124/83 114/70 114/77 Pulse Oximetry 99 94 96 Oxygen Delivery 12/15/24 20:00 Temperature 98.7 F Pulse Rate 117 H Respiratory Rate 18 Blood Pressure 120/74 Pulse Oximetry 96 Oxygen Delivery Exam Narrative: General: well appearing, appears stated age. HEENT: normocephalic, atraumatic. Mucous membranes moist. EOMI, PERRLA, bilateral sclera anicteric, no conjunctival injection. Neck supple without JVD, lymphadenopathy, or bruit. NG to suction Respiratory: clear to ascultation bilaterally. No rales/rhonic/wheezes. Cardiovascular: Regular rate and rhythm, normal S1-S2 upon ascultation. No murmurs, rubs, or clicks. PMI is nondisplaced, capillary refill less than 3 second. Abdomen: Soft, round, no pulsatile masses, nondistended and nontender. No rebo und, no guarding. No CVA tenderness, no hepatosplenomegaly. Bowel sounds present to all four quadrants. No high pitch or tinkling sounds, resonant to percussion. Extremities: No cyanosis, clubbing, or edema present. Pulses are palpable 2/2. Active ROM to all four extremities. Neuro: Alert and orientated x 4. PERRLA. Cranial nerves 2-12 intact without focal deficit. Skin: Warm, dry, and intact, without rash, erythema, or lesion. Psych: pleasant, cooperative, normal speech, normal affect, no hallucinations, no dysarthia H&P: Results Labs Labs: Short CBC 12/15/24 Range/Units 14:34 WBC 14.2 H (4.5-10.0) K/mm3 Hgb 10.7 L (12.0-15.0) g/dL Hct 33.5 L (37.0-47.0) % Plt Count 326 (150-375) k/mm3 BMP 12/15/24 14:34 Sodium 139 Potassium 3.6 Chloride 102 Carbon Dioxide 25 BUN 8 Creatinine 0.56 L Glucose 135 H Calcium 8.5 Cardiac Enzymes 12/15/24 12/15/24 12/15/24 Range/Units 14:34 17:57 20:39 Troponin I < 0.012 < 0.012 < 0.012 (0.000-0.034) ng/mL Liver Function 12/15/24 Range/Units 14:34 Total Bilirubin 0.4 (0.2-1.3) mg/dL AST 30 (14-36) U/L ALT 22 (6-35) U/L Alkaline Phosphatase 98 (38-126) U/L Albumin 3.9 (3.5-5.1) g/dL Assessment and Plan Assessment and plan (1) Bipolar depression: Code(s): F31.9 - Bipolar disorder, unspecified Status: Acute Assessment and Plan: Continue home medications Clamp NG tube for 1 hour (2) Factor V Leiden: Code(s): D68.51 - Activated protein C resistance Status: Acute Assessment and Plan: 81 mg aspirin (3) Gastric distention: Code(s): K31.89 - Other diseases of stomach and duodenum Status: Acute Assessment and Plan: NG tube to low intermittent suction Okay to clamped for walks and medications IV fluids for hydration (4) Pneumonia: Code(s): J18.9 - Pneumonia, unspecified organism Status: Acute Assessment and Plan: With chest wall pain IVF Meropenem (5) Pleural effusion: Code(s): J90 - Pleural effusion, not elsewhere classified Status: Acute Assessment and Plan: Repeat chest x-ray in the morning (6) Anemia: Code(s): D64.9 - Anemia, unspecified Status: Acute Assessment and Plan: Anemia workup (7) Constipation: Code(s): K59.00 - Constipation, unspecified Status: Acute Assessment and Plan: Suppository and fleets p.r.n. IV hydration Avoid Bentyl Avoid narcotics Quality VTE Prophylaxis VTE prophylaxis: mechanical ordered and pharmacologic ordered Hospitalist MIPS Advance Care Plan I have confirmed that the patient's Advanced Care Plan is present, code status is documented, or surrogate decision maker is listed in patient medical record.: Yes Medication Reconciliation I have utilized all available resources to obtain, update and review the patients current medications (includes all prescriptions, OTC, herbals, cannabis, and nutritional supplements).: Yes
[2024-12-15] MEDS: SODIUM CHLORIDE 0.9% IV 1,000 ML 999 ML IV CONT (22:34)
[2024-12-15] MEDS: lamoTRIgine 100 MG TABLET 200 MG PO (22:35)
[2024-12-15] MEDS: NORTRIPTYLINE HCL 25 MG CAPSULE 50 MG PO (22:36)
[2024-12-15] MEDS: KETOROLAC 15 MG/ML VIAL (*BKC) IV PUSH (22:37)
[2024-12-15] MEDS: SODIUM CHLORIDE 0.9% IV 1,000 ML 100 ML IV CONT (23:34)
[2024-12-15] MEDS: METOCLOPRAMIDE HCL INJ 10 MG/2 ML VIAL IV PUSH (23:35)
[2024-12-16] VITALS (19 sets, daily range): BP systolic 92–118; BP diastolic 52–76; PULSE 88–141; RESP 18–28; TEMP 36.7–38.7; O2SAT 84–99
[2024-12-16] MEDS: MEROPENEM 1 GM/NS 100 ML 1 GM/100 ML BAG IVPB ×3 (01:34→17:40)
[2024-12-16] MEDS: HYDROmorphone HCL INJ (*CRX) 2 MG/ML VIAL 0.5 MG IV PUSH (02:16)
[2024-12-16 04:37] LABS: Hematocrit 31.4 % (37.0-47.0); Hemoglobin 9.7 g/dL (12.0-15.0); Mean Corpuscular HGB Conc 30.9 g/dl (32-36); Mean Corpuscular Hemoglobin 28.3 pg (26-34); Mean Corpuscular Volume 91.5 fl (80-100); Mean Platelet Volume 8.9 fl (7.4-10.4); Platelet Count Result 287 k/mm3 (150-375); Red Blood Count 3.43 M/mm3 (4.2-5.4); Red Cell Distribution Width 12.9 % (11.5-14.5); White Blood Count 20.9 K/mm3 (4.5-10.0)
[2024-12-16 04:50] LABS: Iron 13 ug/dL (37-170)
[2024-12-16 04:55] LABS: Anion Gap 7 mmol/L (4-12); Blood Urea Nitrogen 7 mg/dL (7-17); Calcium 8.3 mg/dL (8.4-10.2); Carbon Dioxide 25 mmol/L (22-30); Chloride 105 mmol/L (98-107); Estimated CRCL calculation 123 ml/min; Estimated Glomerular Filt Rate > 60; Glucose 125 mg/dL (65-110); Sodium 137 mmol/L (137-145)
[2024-12-16 05:00] LABS: Percent Iron Saturation 6 % (20-50)
[2024-12-16 05:04] LABS: Band Neutrophils Percent 8 % (0-6); Lymphocytes Absolute Manual 1.04 K/mm3 (1.1-4.5); Monocytes Absolute Manual 0.41 K/mm3 (0.1-0.90); Monocytes Percent Manual 2 % (3-9); Neutrophils Absolute Manual 19.43 K/mm3 (1.3-6.7); Neutrophils Percent Manual 85 % (46-73); Total Cells Counted 100
[2024-12-16 05:05] LABS: Platelet Estimate Adequate (Adequate); Schistocytes None Seen
[2024-12-16] MEDS: KETOROLAC 15 MG/ML VIAL (*BKC) IV PUSH ×4 (05:37→23:15)
[2024-12-16] MEDS: METOCLOPRAMIDE HCL INJ 10 MG/2 ML VIAL IV PUSH ×4 (05:38→23:15)
[2024-12-16 06:30] LABS: Amylase 33 U/L (30-110); Cholesterol 91 mg/dL (0-200); Glucose 119 mg/dL (65-110); Lactate Dehydrogenase 112 U/L (120-246); Lactic Acid Reflex 0.8 mmol/L (0.7-2.0); Total Protein 6.6 g/dL (6.3-8.2)
[2024-12-16 06:39] LABS: INR 1.5; Prothrombin Time 17.6 Seconds (11.1-14.7)
[2024-12-16 06:40] LABS: Partial Thromboplastin Time 34.9 Seconds (22.3-36.8)
[2024-12-16 06:45] LABS: NT Pro B Type Natriuretic Pept 962 pg/mL (19.9-100)
[2024-12-16] MEDS: LORATADINE 10 MG TABLET PO (08:24)
[2024-12-16] MEDS: lamoTRIgine 100 MG TABLET 200 MG PO ×2 (08:24→20:07)
[2024-12-16] MEDS: ESCITALOPRAM OXALATE 10 MG TABLET PO (08:24)
[2024-12-16] MEDS: PANTOPRAZOLE SODIUM IV 40 MG VIAL IV PUSH (08:25)
[2024-12-16] MEDS: FAMOTIDINE 20 MG/2 ML VIAL IV PUSH ×2 (08:25→20:08)
[2024-12-16] MEDS: ASPIRIN 81 MG CHEWABLE TABLET PO (08:25)
[2024-12-16] MEDS: SODIUM CHLORIDE 0.9% IV 1,000 ML 100 ML IV CONT (10:37)
[2024-12-16] MEDS: DOXYCYCLINE 100 MG/NS 100 ML 100 MG/100 ML BAG IVPB ×2 (10:41→20:06)
[2024-12-16 10:52] LABS: Procalcitonin 8.3 ng/mL
[2024-12-16] MEDS: VANCOMYCIN 1,500 MG/NS 500 ML 1,500 MG/500 ML BAG 250 MG IVPB (12:06)
[2024-12-16 12:09] LABS: MRSA (PCR) NOT DETECTED (NOT DETECTE)
--- NOTE | 2024-12-16 13:00 | P.PNIM_ITS ---
Progress Note: A&P Assessment and Plan (1) Bipolar depression: Code(s): F31.9 - Bipolar disorder, unspecified Status: Acute (2) Factor V Leiden: Code(s): D68.51 - Activated protein C resistance Status: Acute (3) Gastric distention: Code(s): K31.89 - Other diseases of stomach and duodenum Status: Acute (4) Pneumonia: Code(s): J18.9 - Pneumonia, unspecified organism Status: Acute (5) Pleural effusion: Code(s): J90 - Pleural effusion, not elsewhere classified Status: Acute (6) Anemia: Code(s): D64.9 - Anemia, unspecified Status: Acute (7) Constipation: Code(s): K59.00 - Constipation, unspecified Status: Acute Plan 29-year-old female with past medical history of factor 5 deficiency bipolar and GI issues presents the hospital with shortness of breath and chest wall pain. Patient states that she has had a cough and back pain for about a week. She started having shortness of breath over the last few days. She also complains of stomach pain and chronic constipation. Patient states that due to the stomach pains with unable to eat or drink well today. She denies fevers chills. Lab work shows leukocytosis of 14.2, hemoglobin of 10.7 no known history of anemia, troponins are negative, CT chest abdomen pelvis show right middle lobe pneumonia with a large right-sided pleural effusion and massive gas distention of stomach. EKG shows sinus tachycardia at 1119. NG tube was placed in the ER for gastric decompression. She has been started on meropenem. Patient remains tachycardic. Leukocytosis worsened to 20 K. will add MRSA coverage with vancomycin and add atypical coverage with doxycycline. Continue NG decompression. Sepsis Right middle lobe pneumonia. Get MRSA swab. Check procalcitonin Right pleural effusion worsened plan for thoracentesis this afternoon To rule out empyema Large gastric distention with no evidence of obstruction on NG decompression DVT prophylaxis SCDs History of bipolar disorder Factor 5 Leiden Anemia Code status full code Subjective Date/time seen: 12/16/24 13:00 Interval history: No overnight events. Feels little short of breath. Remains tachycardic. Denies any abdominal pain. Review of Systems Review of Systems: All systems reviewed & are unremarkable except as noted in HPI and below Exam Narrative: General: well appearing, appears stated age. Not in acute distress HEENT: normocephalic, atraumatic. Mucous membranes moist. NG in place Respiratory: Diminished breath sounds on right side. Mild rhonchi on left Cardiovascular: Tachycardic sinus on telemetry normal S1-S2 upon ascultation. No murmurs, rubs, or gallops Abdomen: Soft, round, no pulsatile masses, nondistended and nontender. No rebound, no guarding. Extremities: No cyanosis, clubbing, or edema present. Pulses are palpable 2/2. Active ROM to all four extremities. Neuro: Alert and orientated x 4. PERRLA. Cranial nerves 2-12 intact without focal deficit. Skin: Warm, dry, and intact, without rash, erythema, or lesion. Psych: pleasant, cooperative, normal speech, normal affect, no hallucinations, no dysarthia Objective Data Vital Signs Vital Signs: Vital Signs - 24 hr 12/15/24 14:19 12/15/24 14:38 12/15/24 14:38 Temperature Pulse Rate 129 H 119 H Respiratory Rate 20 Blood Pressure 118/84 Pulse Oximetry 100 100 Oxygen Delivery Room Air Room Air Oxygen Flow Rate 12/15/24 15:18 12/15/24 16:22 12/15/24 18:17 Temperature Pulse Rate 120 H 118 H 114 H Respiratory Rate 25 H 18 18 Blood Pressure 124/83 114/70 114/77 Pulse Oximetry 99 94 96 Oxygen Delivery Oxygen Flow Rate 12/15/24 20:00 12/15/24 20:00 12/15/24 20:15 Temperature 98.7 F Pulse Rate 117 H 108 H 117 H Respiratory Rate 18 18 Blood Pressure 120/74 Pulse Oximetry 96 96 Oxygen Delivery Room Air Oxygen Flow Rate 12/15/24 22:00 12/15/24 23:55 12/16/24 00:00 Temperature 98.6 F Pulse Rate 117 H 116 H 116 H Respiratory Rate 18 18 Blood Pressure 114/76 Pulse Oximetry 98 98 Oxygen Delivery Room Air Oxygen Flow Rate 12/16/24 00:00 12/16/24 01:47 12/16/24 04:00 Temperature 98.6 F Pulse Rate 115 H 115 H 137 H Respiratory Rate 18 Blood Pressure 118/76 Pulse Oximetry 97 Oxygen Delivery Oxygen Flow Rate 12/16/24 04:00 12/16/24 04:00 12/16/24 05:22 Temperature Pulse Rate 137 H 141 H 136 H Respiratory Rate 18 Blood Pressure Pulse Oximetry 97 Oxygen Delivery Room Air Oxygen Flow Rate 12/16/24 06:35 12/16/24 06:50 12/16/24 08:00 Temperature 98.2 F Pulse Rate 138 H 123 H 122 H Respiratory Rate 20 20 28 H Blood Pressure 99/57 L Pulse Oximetry 84 L 93 94 Oxygen Delivery Room Air Nasal Cannula Oxygen Flow Rate 2 12/16/24 08:00 12/16/24 12:00 Temperature 100.6 F H Pulse Rate 122 H Respiratory Rate 28 H Blood Pressure 99/66 L Pulse Oximetry 94 98 Oxygen Delivery Nasal Cannula Oxygen Flow Rate 2 Intake/Output Intake/Output: Intake & Output 12/13/24 12/14/24 12/15/24 12/16/24 23:59 23:59 23:59 23:59 Intake Total 1960 1200 Output Total 600 Balance 1960 600 Meds/Results Medications: Active Medications Generic Name Dose Route Start Last Admin Trade Name Freq PRN Reason Stop Dose Admin Acetaminophen 650 mg 12/15/24 23:15 Acetaminophen 325 Mg Tablet PO Q4H PRN Mild Pain (1-3) or Fever Aspirin 81 mg 12/16/24 08:00 12/16/24 08:25 Aspirin 81 Mg Chewable Tablet PO 81 mg DAILY@0800 JUAN DANIEL Administration Bisacodyl 10 mg 12/15/24 21:41 Bisacodyl 10 Mg Suppository RECTAL QAM PRN Constipation Clonazepam 0.25 mg 12/15/24 23:20 Clonazepam (*Crx) 0.25 Mg Tablet PO Q6H PRN Anxiety Escitalopram Oxalate 10 mg 12/16/24 09:00 12/16/24 08:24 Escitalopram Oxalate 10 Mg Tablet PO 10 mg DAILY JUAN DANIEL Administration Famotidine 20 mg 12/15/24 21:00 12/16/24 08:25 Famotidine 20 Mg/2 Ml Vial IV PUSH 20 mg Q12HR JUAN DANIEL Administration Hydromorphone HCl 0.5 mg 12/15/24 17:20 12/16/24 02:16 Hydromorphone Hcl Inj (*Crx) 2 Mg/Ml Vial IV PUSH 0.5 mg Q4H PRN Administration Pain Rated 7-10 Meropenem 1 gm in 100 mls @ 200 mls/hr 12/16/24 02:00 12/16/24 09:21 IVPB 200 mls/hr Q8H JUAN DANIEL Administration Sodium Chloride 1,000 mls @ 100 mls/hr 12/15/24 21:45 12/16/24 10:37 Normal Saline Iv IV CONT 100 mls/hr .Q10H JUAN DANIEL Administration Doxycycline Hyclate 100 mg in 100 mls @ 100 mls/hr 12/16/24 09:55 12/16/24 10:41 Vibramycin 100 Mg/Ns 100 Ml IVPB 100 mls/hr Q12HR JUAN DANIEL Administration Vancomycin HCl 1,250 mg in 250 mls @ 166.667 mls/hr 12/16/24 23:00 Vancomycin 1,250 Mg/Ns 250 Ml IVPB Q12H JUAN DANIEL Ketorolac Tromethamine 15 mg 12/15/24 22:00 12/16/24 12:07 Ketorolac 15 Mg/Ml Vial (*Bk) IV PUSH 15 mg Q6HR JUAN DANIEL Administration Lamotrigine 200 mg 12/15/24 21:40 12/16/24 08:24 Lamotrigine 100 Mg Tablet PO 200 mg Q12HR JUAN DANIEL Administration Loratadine 10 mg 12/16/24 09:00 12/16/24 08:24 Loratadine 10 Mg Tablet PO 10 mg DAILY JUAN DANIEL Administration Metoclopramide HCl 10 mg 12/16/24 00:00 12/16/24 12:07 Metoclopramide Hcl Inj 10 Mg/2 Ml Vial IV PUSH 10 mg Q6HR JUAN DANIEL Administration Nortriptyline HCl 50 mg 12/15/24 21:40 12/15/24 22:36 Nortriptyline Hcl 25 Mg Capsule PO 50 mg HS JUAN DANIEL Administration Pantoprazole Sodium 40 mg 12/16/24 09:00 12/16/24 08:25 Pantoprazole Sodium Iv 40 Mg Vial IV PUSH 40 mg QAM JUAN DANIEL Administration Radiology Results: ITS Impressions Chest/Abdomen/Pelvis CT 12/15/24 16:30 IMPRESSION: Right middle lobe pneumonia with a large right-sided pleural effusion. Massive gaseous distention of the stomach Abdomen X-Ray 12/16/24 06:30 Impression: Nonspecific bowel gas pattern. NG tube in place. Chest X-Ray 12/16/24 06:39 Impression: Large right pleural effusion. Minimal haziness left lung base, nonspecific. NG tube in place. Labs Labs: Laboratory Results - last 24 hr 12/15/24 12/15/24 12/15/24 14:34 15:26 17:57 WBC 14.2 H RBC 3.75 L Hgb 10.7 L Hct 33.5 L MCV 89.3 MCH 28.5 MCHC 31.9 L RDW 12.6 Plt Count 326 MPV 8.6 Immature Gran % (Auto) 0.5 Neut % (Auto) 74.1 H Lymph % (Auto) 17.8 L [place] % (Auto) 6.1 Eos % (Auto) 0.9 Baso % (Auto) 0.6 Lymph # (Auto) 2.54 [place] # (Auto) 0.9 H Eos # (Auto) 0.1 Baso # (Auto) 0.1 Abs Immat Gran (auto) 0.07 H Absolute Neuts (auto) 10.5 H Absolute Nucleated RBC 0.000 Total Counted Neutrophils % (Manual) Band Neutrophils % Lymphocytes % (Manual) Monocytes % (Manual) Nucleated RBC % 0.0 Abs Neuts (Manual) Abs Lymphs (Manual) Abs Monocytes (Manual) Platelet Estimate Schistocytes PT 16.5 H INR 1.3 APTT 31.8 Sodium 139 Potassium 3.6 Chloride 102 Carbon Dioxide 25 Anion Gap 12 BUN 8 Creatinine 0.56 L Estim Creat Clear Calc 119 Estimated GFR > 60 Glucose 135 H Lactic Acid Calcium 8.5 Iron TIBC % Saturation Total Bilirubin 0.4 AST 30 ALT 22 Alkaline Phosphatase 98 Lactate Dehydrogenase Troponin I < 0.012 < 0.012 NT-Pro-B Natriuret Pep Total Protein 8.5 H Albumin 3.9 Cholesterol Amylase Lipase 25 Vitamin B12 Folate Procalcitonin TSH (Reflex) POC Urine HCG, Qual Negative Nasal MRSA (PCR) 12/15/24 12/16/24 12/16/24 20:39 03:51 06:14 WBC 20.9 H RBC 3.43 L Hgb 9.7 L Hct 31.4 L MCV 91.5 MCH 28.3 MCHC 30.9 L RDW 12.9 Plt Count 287 MPV 8.9 Immature Gran % (Auto) Not Reportable Neut % (Auto) Not Reportable Lymph % (Auto) Not Reportable [place] % (Auto) Not Reportable Eos % (Auto) Not Reportable Baso % (Auto) Not Reportable Lymph # (Auto) Not Reportable [place] # (Auto) Not Reportable Eos # (Auto) Not Reportable Baso # (Auto) Not Reportable Abs Immat Gran (auto) Not Reportable Absolute Neuts (auto) Not Reportable Absolute Nucleated RBC Not Reportable Total Counted 100 Neutrophils % (Manual) 85 H Band Neutrophils % 8 H Lymphocytes % (Manual) 5.0 L Monocytes % (Manual) 2 L Nucleated RBC % Not Reportable Abs Neuts (Manual) 19.43 H Abs Lymphs (Manual) 1.04 L Abs Monocytes (Manual) 0.41 Platelet Estimate Adequate Schistocytes None seen PT INR APTT Sodium 137 Potassium 5.0 Chloride 105 Carbon Dioxide 25 Anion Gap 7 BUN 7 Creatinine 0.55 L Estim Creat Clear Calc 123 Estimated GFR > 60 Glucose 125 H Lactic Acid Calcium 8.3 L Iron 13 L TIBC 205 L % Saturation 6 L Total Bilirubin AST ALT Alkaline Phosphatase Lactate Dehydrogenase Troponin I < 0.012 NT-Pro-B Natriuret Pep Total Protein Albumin Cholesterol Amylase Lipase Vitamin B12 404.0 Folate 6.0 Procalcitonin 8.3 TSH (Reflex) 1.210 POC Urine HCG, Qual Nasal MRSA (PCR) 12/16/24 12/16/24 06:15 10:48 WBC RBC Hgb Hct MCV MCH MCHC RDW Plt Count MPV Immature Gran % (Auto) Neut % (Auto) Lymph % (Auto) [place] % (Auto) Eos % (Auto) Baso % (Auto) Lymph # (Auto) [place] # (Auto) Eos # (Auto) Baso # (Auto) Abs Immat Gran (auto) Absolute Neuts (auto) Absolute Nucleated RBC Total Counted Neutrophils % (Manual) Band Neutrophils % Lymphocytes % (Manual) Monocytes % (Manual) Nucleated RBC % Abs Neuts (Manual) Abs Lymphs (Manual) Abs Monocytes (Manual) Platelet Estimate Schistocytes PT 17.6 H INR 1.5 APTT 34.9 Sodium Potassium Chloride Carbon Dioxide Anion Gap BUN Creatinine Estim Creat Clear Calc Estimated GFR Glucose 119 H Lactic Acid 0.8 Calcium Iron TIBC % Saturation Total Bilirubin AST ALT Alkaline Phosphatase Lactate Dehydrogenase 112 L Troponin I NT-Pro-B Natriuret Pep 962 H Total Protein 6.6 Albumin 3.0 L Cholesterol 91 Amylase 33 Lipase Vitamin B12 Folate Procalcitonin TSH (Reflex) POC Urine HCG, Qual Nasal MRSA (PCR) Not detected
[2024-12-16] MEDS: ACETAMINOPHEN 325 MG TABLET 650 MG PO (15:46)
[2024-12-16] MEDS: NORTRIPTYLINE HCL 25 MG CAPSULE 50 MG PO (20:07)
[2024-12-16] MEDS: VANCOMYCIN 1,250 MG/NS 250 ML 1,250 MG/250 ML BAG 166.67 MG IVPB (23:16)
[2024-12-17] VITALS (18 sets, daily range): BP systolic 85–115; BP diastolic 48–69; PULSE 80–123; RESP 16–22; TEMP 36.3–37; O2SAT 88–100
--- NOTE | 2024-12-17 | ECHO_ITS ---
Patient Info Name: Annalise Renteria Age: 29 years : 1995 Gender: Female Ht: 67 in Wt: 147 lbs BSA: 1.78 m2 HR: 127 bpm BP: 107 / 61 mmHg Heart Rhythm: Tachycardia Technical Quality: Good Exam Date: 12/17/2024 4:27 PM Patient Status: I Admit Date: 12/16/2024 Exam Type: CA echo doppler color flow Complete two-dimensional, color flow and Doppler transthoracic echocardiogram is performed. Staff Referring Physician: Antoinette Alexis [facility] Passenger Brakeman: Elizabeth Varma Attending Provider: Huy Foster Summary 1. Left ventricular chamber dimension is normal. 2. Left ventricular systolic function is normal, estimated at 60-65. 3. Right ventricular systolic function is normal. 4. There is mild tricuspid valve regurgitation. Left Ventricle Left ventricular chamber dimension is normal. Left ventricular systolic function is normal, estimated at 60-65. There is no increased left ventricular wall thickness. Right Ventricle Right ventricular chamber dimension is normal. Right ventricular systolic function is normal. Left Atria Left atrial chamber dimension is normal. Right Atria Right atrial chamber dimension is normal. Atrial Septum Intact interatrial septum visualized by color flow imaging. Aortic Valve The aortic valve is trileaflet. There is no aortic valve stenosis. There is no aortic valve regurgitation. Pulmonic Valve The pulmonic valve is not well visualized. Mitral Valve There is trace mitral valve regurgitation. Tricuspid Valve There is mild tricuspid valve regurgitation. Pericardium/Pleural There is no pericardial effusion. Inferior Vena Cava Normal inferior vena cava with <50% collapse upon inspiration consistent with elevated right atrial pressure, 8 mmHg. Aorta The aortic root size at the sinus of Valsalva is normal. Left Ventricular Outflow Tract Name Value Normal LVOT 2D LVOT Diameter 1.8 cm LVOT Doppler LVOT Peak Velocity 151 cm/s LVOT Peak Gradient 9 mmHg LVOT Mean Gradient 5 mmHg LVOT VTI 22 cm LVOT VTI/AV VTI Ratio 0.8 LVOT Stroke Volume 53 ml LVOT CO 6.6 l/min LVOT CI 3.7 l/min/m2 Pulmonic Valve Name Value Normal PV Doppler PV Peak Velocity 120 cm/s PV Peak Gradient 6 mmHg Tricuspid Valve Name Value Normal TV Regurgitation Doppler TR Peak Velocity 312 cm/s TR Peak Gradient 39 mmHg Estimated PAP/RSVP RA Pressure 8 mmHg <=5 PA Systolic Pressure 47 mmHg <36 RV Systolic Pressure 47 mmHg <36 TV Annular TDI TV Lateral Beatrice s' Velocity 15.0 cm/s >=9.5 Aortic Valve Name Value Normal AV Doppler AV Peak Velocity 177 cm/s AV Peak Gradient 13 mmHg AV Mean Gradient 7 mmHg AV VTI 27 cm AV Area (Cont Eq VTI) 2.0 cm2 >=3.0 AV Area (Cont Eq Danial) 2.1 cm2 AV DI (Danial) 0.85 AV Regurgitation 2D LVOT Area 2.5 cm2 Ventricles Name Value Normal LV Dimensions 2D/MM IVS Diastolic Thickness (2D) 0.7 cm 0.6-1.0 LVID Diastole (2D) 4.6 cm 3.8-5.2 LVIW Diastolic Thickness (2D) 0.7 cm 0.6-0.9 LVID Systole (2D) 2.9 cm 2.2-3.5 LVOT Diameter 1.8 cm LV Mass (2D Cubed) 102.22 g 67.00-162.00 LV Mass Index (2D Cubed) 57 g/m2 43-95 Relative Wall Thickness (2D) 0.30 <=0.42 LV Fractional Shortening/Ejection Fraction 2D/MM LV Fractional Shortening (2D) 38 % 27-45 LV EF (2D Teichholz) 68 % LV Diastolic Volume (4C MOD) 59 ml LV EF (4C MOD) 66 % LV Diastolic Volume (2C MOD) 56 ml LV EF (2C MOD) 56 % LV Diastolic Volume (BP MOD) 58 ml 46-106 LV Diastolic Volume Index (BP MOD) 32 ml/m2 29-61 LV Systolic Volume (BP MOD) 23 ml 14-42 LV Systolic Volume Index (BP MOD) 13 ml/m2 8-24 LV EF (BP MOD) 59 % 54-74 LV Diastolic Length (4C) 7.4 cm LV Systolic Length (4C) 5.7 cm LV Stroke Volume (4C MOD) 39 ml Atria Name Value Normal LA Dimensions LA Volume (4C A-L) 25 ml LA Volume (BP A-L) 25 ml RA Dimensions RA Systolic Major [place] Length (4C) 3.4 cm 2.2-2.8 RA Area (4C) 10.0 cm2 <=18.0 Report Signatures
[2024-12-17] MEDS: MEROPENEM 1 GM/NS 100 ML 1 GM/100 ML BAG IVPB ×3 (02:07→18:26)
[2024-12-17] MEDS: SODIUM CHLORIDE 0.9% IV 1,000 ML 100 ML IV CONT ×3 (03:47→21:12)
[2024-12-17 04:19] LABS: Basophils Absolute Auto 0.1 K/mm3 (0.0-0.1); Basophils Percent Auto 0.5 % (0.2-1.2); Eosinophils Absolute Auto 0.2 K/mm3 (0-0.3); Eosinophils Percent Auto 0.9 % (0-4.4); Hematocrit 27.4 % (37.0-47.0); Hemoglobin 8.5 g/dL (12.0-15.0); Immature Granulocyte Absolute 0.52 K/mm3 (0.00-0.031); Immature Granulocyte Percent A 2.1 % (0-0.5); Lymphocytes Absolute Auto 0.83 K/mm3 (0.9-3.2); Lymphocytes Percent Auto 3.3 % (18.3-44.2); Mean Corpuscular Hemoglobin 28.5 pg (26-34); Mean Corpuscular Volume 91.9 fl (80-100); Mean Platelet Volume 8.9 fl (7.4-10.4); Monocytes Percent Auto 3.9 % (2.6-8.5); Neutrophils Absolute Auto 22.2 K/mm3 (1.3-6.7); Neutrophils Percent Auto 89.3 % (45.5-73.1); Platelet Count Result 263 k/mm3 (150-375); Red Blood Count 2.98 M/mm3 (4.2-5.4); Red Cell Distribution Width 13.2 % (11.5-14.5); White Blood Count 24.9 K/mm3 (4.5-10.0)
[2024-12-17 04:45] LABS: Hypochromasia 1+; Microcytosis 1+ (NORMAL); Platelet Estimate Adequate (Adequate); Schistocytes None Seen
[2024-12-17 05:01] LABS: Alanine Aminotransferase 13 U/L (6-35); Albumin Level 2.6 g/dL (3.5-5.1); Alkaline Phosphatase 181 U/L (38-126); Anion Gap 7 mmol/L (4-12); Aspartate Amino Transferase 22 U/L (14-36); Bilirubin,Total 0.4 mg/dL (0.2-1.3); Blood Urea Nitrogen 15 mg/dL (7-17); Calcium 8.6 mg/dL (8.4-10.2); Carbon Dioxide 22 mmol/L (22-30); Chloride 110 mmol/L (98-107); Estimated CRCL calculation 77 ml/min; Estimated Glomerular Filt Rate > 60; Glucose 96 mg/dL (65-110); Magnesium 1.8 mg/dL (1.6-2.3); Potassium 4.1 mmol/L (3.4-5.0); Sodium 139 mmol/L (137-145); Total Protein 5.8 g/dL (6.3-8.2)
[2024-12-17] MEDS: METOCLOPRAMIDE HCL INJ 10 MG/2 ML VIAL IV PUSH ×4 (06:25→23:41)
[2024-12-17] MEDS: KETOROLAC 15 MG/ML VIAL (*BKC) IV PUSH ×4 (06:25→23:38)
[2024-12-17] MEDS: ESCITALOPRAM OXALATE 10 MG TABLET PO (09:09)
[2024-12-17] MEDS: LORATADINE 10 MG TABLET PO (09:09)
[2024-12-17] MEDS: lamoTRIgine 100 MG TABLET 200 MG PO ×2 (09:09→21:13)
[2024-12-17] MEDS: PANTOPRAZOLE SODIUM IV 40 MG VIAL IV PUSH (09:10)
[2024-12-17] MEDS: FAMOTIDINE 20 MG/2 ML VIAL IV PUSH ×2 (09:10→21:13)
[2024-12-17] MEDS: DOXYCYCLINE 100 MG/NS 100 ML 100 MG/100 ML BAG IVPB (09:13)
[2024-12-17 09:18] LABS: INR 2.3; Prothrombin Time 25.2 Seconds (11.1-14.7)
[2024-12-17 09:19] LABS: Partial Thromboplastin Time 40.5 Seconds (22.3-36.8)
[2024-12-17] MEDS: HYDROmorphone HCL INJ (*CRX) 2 MG/ML VIAL 0.5 MG IV PUSH ×2 (09:19→15:40)
[2024-12-17] MEDS: VANCOMYCIN 1,250 MG/NS 250 ML 1,250 MG/250 ML BAG 150 MG IVPB ×2 (11:51→23:55)
[2024-12-17 11:52] LABS: Lactate Dehydrogenase 162 U/L (120-246)
--- NOTE | 2024-12-17 12:01 | PC.NURSE ---
Dr. Foster updated with pt's bp 85/42. Order for fluid bolus
--- NOTE | 2024-12-17 12:48 | P.CONPL_ITS ---
Assessment and Plan Assessment and plan (1) Pneumonia: Code(s): J18.9 - Pneumonia, unspecified organism Status: Acute Assessment and Plan: patient carries a history of childhood asthma but has not been on no inhalers since high school and has no history of tobacco use or any lung disease at this time. She is on limited in her activities of daily living up this current illness she was walking 12,000 steps a day. On no inhaled medicines. Patient presents with 8 day history of dry cough, with progression to shortness of breath, back pain. She has a leukocytosis on presentation of 14.2, she was febrile and her CT scan of the chest shows a right middle lobe consolidative infiltrate with no proximal airway obstruction, possible necrosis within the right middle lobe and moderate right pleural effusion. She was started on meropenem, vancomycin and doxycycline were added on 12/16. 12/17/2024: The patient tells me she has 15% back to her baseline. she still has a cough that is the same. She is producing no phlegm and no hemoptysis.he was 5-10%. White blood cell count 24.9, creatinine 0.91. Cumulative she is positive 3.6 L since admission. Her weight today is 66.9 with an admission weight of 60.9. When I enter the room she was on 2 L with saturation 96%. I decreased her room air and after 21 minutes her room air saturations were 93%. Her INR is 2.3 and her thoracentesis was canceled today. Plan: Leukocytosis is worsening although she is afebrile today. I will change her doxycycline to Levaquin which will continue to cover atypicals and provide additional Gram-negative coverage. Continue meropenem, day 3 and vancomycin, day 2. I will send a COVID, RSV, influenza RT PCR assay, I will send a respiratory pathogen panel, urine for Legionella, urine for pneumococcal antigen. Blood cultures are pending. She is not making any phlegm at this time. Discussed with Dr. Foster, will follow with you. (2) Pleural effusion: Code(s): J90 - Pleural effusion, not elsewhere classified Status: Acute Assessment and Plan: Patient with right middle lobe pneumonia and moderate right pleural effusion. 12/17/2024: Her INR is 2.3 and her thoracentesis was canceled today. Plan: Patient to have thoracentesis once her INR is corrected. Will discuss Vitamin K with hospitalist. History of Present Illness History of Present Illness Consult date: 12/17/24 Chief complaint: Pneumonia, pleural effusion, gastroparesis Narrative: 12/17/2024: This is a new pulmonary consult for pneumonia with pleural effusion. 29-year-old with a history of childhood asthma, irritable bowel syndrome, bipolar, depression, factor 5 Leiden carrier. patient tells me she was diagnosed with asthma in 8th grade and remembers taking an albuterol inhaler p.r.n. about 1 time a week through high school. She has not taken any rescue albuterol or inhalers since high school. Three weeks ago when she was feeling completely healthy she has no respiratory limitations in her activities of daily living. 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 She does not go to the gymnasium. She is on no respiratory medications. Regarding her factor 5 Leiden carrier her mother developed blood clots and has factor 5 Leiden disease. Patient denies any having any blood clots. On 12/09/2024 the patient developed a dry cough. The dry cough persisted and Worsened. On 12/12 the patient saw her PCP and told her the cough was due to allergies and gave her Mucinex. Patient developed severe back pain that was worse with coughing. On 12/14/2023 the patient developed shortness of breath at rest and with exertion but again denied fever, chills, rigors. Her symptoms progressed and she presented to the emergency room on 12/15/2024. Patient denies any vomiting episodes, aspiration, loss of consciousness, blackouts, seizures or chest trauma. On 12/15/2024 patient was in mild respiratory distress blood pressure 118/84, heart rate 129, respirations 20, room air saturations 100. White blood cell count 14.2, eosinophils 0.9%. Creatinine 0.56. Troponin less than 0.012. patient also complained of abdominal pain with coughing. CT scan chest abdomen pelvis showed moderate right-sided pleural effusion, right middle lobe consolidation with possible areas of necrosis, distended esophagus and stomach. Patient was started on meropenem. 12/16/2024: Patient is afebrile. She required 2 L nasal cannula. Vancomycin and doxycycline were added. She tells me that she was minimally improved and feeling approximately 5-10% back to her baseline. Patient had a fever to 38.5 at 4:00 p.m. White blood cell count is 20.9. 12/17/2024: The patient tells me she has 15% back to her baseline. she still has a cough that is the same. She is producing no phlegm and no hemoptysis.he was 5-10%. White blood cell count 24.9, creatinine 0.91. Cumulative she is positive 3.6 L since admission. Her weight today is 66.9 with an admission weight of 60.9. When I enter the room she was on 2 L with saturation 96%. I decreased her room air and after 21 minutes her room air saturations were 93%. Her INR is 2.3 and her thoracentesis was canceled today. DATA: CLINICAL INDICATION: Right-sided chest pain. COMPARISON: 03/28/2020 and 04/07/2017 . TECHNIQUE: An enhanced CT of the abdomen and pelvis was performed utilizing multislice spiral technique reconstructed at 5 mm slice thickness. Coronal and sagittal reconstructions were performed. This CT examination was performed utilizing dose reduction techniques. DLP: 500 mGy-cm FINDINGS/OBSERVATIONS: Lung: Heterogeneous consolidation encompassing the entirety of the right middle lobe. Large right-sided pleural effusion with adjacent compressive atelectasis. The left hemithorax demonstrates interstitial thickening but is otherwise clear. The heart is of normal size, without pericardial effusion. Mediastinum: Calcified lymph nodes within the mediastinum suggesting prior granulomatous disease. No pathologically enlarged or morphologically suspicious lymph nodes are identified within the mediastinum, bilateral axilla, within the soft tissues of the anterior chest wall. Soft tissues of the chest: Unremarkable. Bones of the chest: No acute fracture. No lytic or blastic lesions are identified. Liver: The liver enhances homogeneously and is enlarged measuring 20 cm in longitudinal dimension. Gallbladder and biliary system: The gallbladder is only minimally distended and otherwise unremarkable. Pancreas: The pancreas enhances homogeneously, without ductal dilatation. Spleen: Spleen enhances homogeneously and is not enlarged Kidneys: The bilateral kidneys enhance symmetrically without hydronephrosis or renal calculi. Adrenal glands: Unremarkable. Gastrointestinal tract: Massive gaseous distention of the stomach without a clear source of obstruction. The air-filled esophagus is also distended. Trace fecal stasis. Appendix: The appendix is not definitively visualized. However, no pericecal inflammatory change is identified suggest the presence of acute appendicitis. Vasculature: No calcified atherosclerotic disease is present. No aneurysmal dilatation. Lymph nodes: Scattered nonpathologically enlarged lymph nodes within the root of the mesentery and deep in the pelvis. Pelvic structures: The bladder is decompressed and otherwise unremarkable. Uterus is anteverted and anteflexed Body wall and musculoskeletal: Small fat-containing umbilical hernia. No significant degenerative disease within the lower thoracic and lumbar spines. IMPRESSION: Right middle lobe pneumonia with a large right-sided pleural effusion. Massive gaseous distention of the stomach Review of Systems 2 Constitutional: Constitutional: Reports no additional constitutional complaints Eyes: Eyes: Reports no additional eye complaints ENT: Reports system reviewed and no additional complaints, except as documented Cardiovascular: Cardiovascular: Reports no additional cardiovascular complaints Respiratory: Respiratory: Reports no additional respiratory complaints Gastrointestinal: Gastrointestinal: Reports no additional gastrointestinal complaints Musculoskeletal: Musculoskeletal: Reports no additional musculoskeletal complaints Neurologic: Reports system reviewed and no additional complaints, except as documented Psychiatric: Psychiatric: Reports no additional psychiatric complaints Endocrine: Endocrine: Reports no additional endocrine complaints Hematologic/Lymphatic: Hematologic/Lymphatic: Reports no additional hematologic/lymphatic complaints Allergic/Immunologic: Allergic/Immunologic: Reports no additional allergic/immunologic complaints [facility] Past Medical History Medical History (Updated 12/15/24 @ 23:12 by Sandra Vargas APRN) On Depo-Provera for contraception Irritable bowel syndrome Change in bowel habits Abdominal pain Factor 5 Leiden mutation, heterozygous Stomach problems Bipolar depression Anxiety Asthma Depression Surgical History Surgical History [place] teeth removed Family History Family History (Updated 12/15/24 @ 18:58 by Bing Freeman RN) Mother Breast cancer diagnosed at age 52 Family history of hemochromatosis Diabetes mellitus Father Diabetes mellitus Other Breast cancer 4 aunts, 3 diagnosed in 40s and 1 at 38, 1 cousin at age 26 Uterine cancer aunt Social History Social History Smoking status: Never smoker Second hand tobacco smoke exposure: No Alcohol intake: current Alcohol use details: social Substance use: never Substance use type: does not use Do You Feel Safe in your Home?: Yes Lack of Transportation: No Lack of Food: Never True Current Housing: I Have Housing Concerned About Future Housing: No Difficulty Paying Gas/Electric Bills: No Difficulty Paying for Meds: No Currently Unemployed: No Education: High School Diploma/GED Difficulty w/ Childcare or Family Care: No Living arrangements: with family Occupation/Education: occupation Gender identity (if verbalized by the patient): Female Sexual Orientation (if Verbalized by the Patient): Straight or Heterosexual Spiritual care concerns: No Meds Home Medications and Allergies Home Medications ?Medication ?Instructions ?Recorded ?Confirmed ?Type lamotrigine 200 mg tablet 200 mg PO BID 04/29/22 12/15/24 History (Lamictal) dextroamphetamine-amphetamine 20 20 mg PO DAILY 09/24/22 12/15/24 History mg tablet (Adderall) dicyclomine 10 mg capsule 10 mg PO TID PRN abdominal 12/17/22 12/15/24 Rx discomfort #90 caps loratadine 10 mg tablet (Claritin) 10 mg PO DAILY #30 tabs 01/06/23 12/15/24 Rx medroxyprogesterone 150 mg/mL 150 mg IM [id number] #1 mL 08/24/23 12/15/24 Rx intramuscular suspension clonazepam 0.25 mg disintegrating 0.25 mg PO PRN 12/15/24 12/15/24 History tablet escitalopram oxalate 10 mg tablet 10 mg PO DAILY 12/15/24 12/15/24 History nortriptyline 25 mg capsule 50 mg PO .bedtime 12/15/24 12/15/24 History Allergies Allergy/AdvReac Type Severity Reaction Status Date / Time azithromycin Allergy Unknown Unknown Verified 12/15/24 18:40 cefuroxime Allergy Unknown Unknown Verified 12/15/24 18:40 Vital Signs Vital Signs - 24 hr 12/16/24 14:00 12/16/24 15:46 12/16/24 16:00 Temperature 38.7 C H Pulse Rate 112 H Respiratory Rate Blood Pressure Pulse Oximetry 98 Oxygen Delivery Nasal Cannula Oxygen Flow Rate 2 12/16/24 16:00 12/16/24 16:00 12/16/24 17:13 Temperature 38.5 C H 37.1 C Pulse Rate 121 H 116 H Respiratory Rate 24 H Blood Pressure 106/65 Pulse Oximetry 97 Oxygen Delivery Oxygen Flow Rate 12/16/24 18:00 12/16/24 20:00 12/16/24 20:00 Temperature Pulse Rate 99 88 Respiratory Rate Blood Pressure Pulse Oximetry 97 Oxygen Delivery Nasal Cannula Oxygen Flow Rate 2 12/16/24 20:04 12/16/24 22:00 12/16/24 23:20 Temperature 36.9 C 36.7 C Pulse Rate 103 H 101 H 100 Respiratory Rate 24 H 20 Blood Pressure 101/59 L 92/52 L Pulse Oximetry 97 99 Oxygen Delivery Oxygen Flow Rate 12/16/24 23:48 12/17/24 00:00 12/17/24 02:00 Temperature Pulse Rate 95 94 Respiratory Rate Blood Pressure Pulse Oximetry 99 Oxygen Delivery Nasal Cannula Oxygen Flow Rate 2 12/17/24 03:50 12/17/24 04:00 12/17/24 04:00 Temperature 36.7 C Pulse Rate 97 80 Respiratory Rate 20 Blood Pressure 94/52 L Pulse Oximetry 98 98 Oxygen Delivery Nasal Cannula Oxygen Flow Rate 2 12/17/24 06:00 12/17/24 07:28 12/17/24 08:00 Temperature 37.0 C Pulse Rate 93 104 H Respiratory Rate 16 Blood Pressure 92/55 L Pulse Oximetry 98 99 Oxygen Delivery Nasal Cannula Oxygen Flow Rate 2 12/17/24 08:00 12/17/24 10:00 12/17/24 11:35 Temperature 36.7 C Pulse Rate 104 H 104 H 111 H Respiratory Rate 18 Blood Pressure 85/48 L Pulse Oximetry 98 Oxygen Delivery Oxygen Flow Rate Exam 2 Const: General: cooperative, healthy appearing and comfortable O rientation/consciousness: oriented to person, oriented to place and oriented to time Other: Tachycardic HENMT: Head: normal to inspection Ears: hearing grossly normal bilaterally Eyes: General: appearance normal, both eyes and all related structures Neck: Neck: normal visual inspection Chest: Chest palpation & inspection: normal inspection of the chest Resp: Effort & Inspection: normal respiratory effort and able to speak in complete sentences Auscultation: no crackles, no rales, no rhonchi, no wheezes and diminished lung sounds Other: right base Cardio: Jugular venous distension: no JVD Other: tachycardic GI: Inspection: normal to inspection GI Palp: No abdominal tenderness Skin: General skin exam: normal color Neuro: General: oriented to person, oriented to place and oriented to time Extrem: General: normal to inspection and no edema Psych: Appearance: grossly normal Results Laboratory Findings 12/17/24 03:43 12/17/24 03:43 ABG, PT/INR, D-dimer: PT/INR, D-dimer PT 25.2 Seconds (11.1-14.7) H D 12/17/24 08:34 INR 2.3 12/17/24 08:34 Abnormal lab findings: Abnormal Labs 12/15/24 12/16/24 12/16/24 14:34 03:51 06:15 WBC 14.2 H 20.9 H RBC 3.75 L 3.43 L Hgb 10.7 L 9.7 L Hct 33.5 L 31.4 L MCHC 31.9 L 30.9 L Immature Gran % (Auto) Neut % (Auto) 74.1 H Lymph % (Auto) 17.8 L Lymph # (Auto) [place] # (Auto) 0.9 H Abs Immat Gran (auto) 0.07 H Absolute Neuts (auto) 10.5 H Neutrophils % (Manual) 85 H Band Neutrophils % 8 H Lymphocytes % (Manual) 5.0 L Monocytes % (Manual) 2 L Abs Neuts (Manual) 19.43 H Abs Lymphs (Manual) 1.04 L PT 16.5 H 17.6 H APTT Chloride Creatinine 0.56 L 0.55 L Glucose 135 H 125 H 119 H Calcium 8.3 L Iron 13 L TIBC 205 L % Saturation 6 L Alkaline Phosphatase Lactate Dehydrogenase 112 L NT-Pro-B Natriuret Pep 962 H Total Protein 8.5 H Albumin 3.0 L 12/17/24 12/17/24 03:43 08:34 WBC 24.9 H RBC 2.98 L Hgb 8.5 L Hct 27.4 L MCHC 31.0 L Immature Gran % (Auto) 2.1 H Neut % (Auto) 89.3 H Lymph % (Auto) 3.3 L Lymph # (Auto) 0.83 L [place] # (Auto) 1.0 H Abs Immat Gran (auto) 0.52 H Absolute Neuts (auto) 22.2 H Neutrophils % (Manual) Band Neutrophils % Lymphocytes % (Manual) Monocytes % (Manual) Abs Neuts (Manual) Abs Lymphs (Manual) PT 25.2 H D APTT 40.5 H Chloride 110 H Creatinine Glucose Calcium Iron TIBC % Saturation Alkaline Phosphatase 181 H Lactate Dehydrogenase NT-Pro-B Natriuret Pep Total Protein 5.8 L Albumin 2.6 L Diagnostic Findings Additional studies: ITS Impressions Chest X-Ray 12/15/24 15:07 IMPRESSION: Large right-sided pleural effusion with adjacent consolidation. Chest/Abdomen/Pelvis CT 12/15/24 16:30 IMPRESSION: Right middle lobe pneumonia with a large right-sided pleural effusion. Massive gaseous distention of the stomach Abdomen X-Ray 12/15/24 18:14 IMPRESSION: Nasogastric tube at the level of the distal esophagus for which advancement of approximately 12 cm is recommended for optimal radiographic placement. Abdomen X-Ray 12/16/24 06:30 Impression: Nonspecific bowel gas pattern. NG tube in place. Chest X-Ray 12/16/24 06:39 Impression: Large right pleural effusion. Minimal haziness left lung base, nonspecific. NG tube in place.
[2024-12-17] MEDS: ALBUMIN HUMAN 25% 25 GM/100 ML 200 ML IVPB ×2 (12:55→21:22)
--- NOTE | 2024-12-17 13:11 | PM.IMPN ---
Progress Note: A&P Assessment and Plan (1) Bipolar depression: Code(s): F31.9 - Bipolar disorder, unspecified Status: Acute (2) Factor V Leiden: Code(s): D68.51 - Activated protein C resistance Status: Acute (3) Gastric distention: Code(s): K31.89 - Other diseases of stomach and duodenum Status: Acute (4) Pneumonia: Code(s): J18.9 - Pneumonia, unspecified organism Status: Acute (5) Pleural effusion: Code(s): J90 - Pleural effusion, not elsewhere classified Status: Acute (6) Anemia: Code(s): D64.9 - Anemia, unspecified Status: Acute (7) Constipation: Code(s): K59.00 - Constipation, unspecified Status: Acute Plan 29-year-old female with past medical history of factor 5 deficiency bipolar and GI issues presents the hospital with shortness of breath and chest wall pain. Patient states that she has had a cough and back pain for about a week. She started having shortness of breath over the last few days. She also complains of stomach pain and chronic constipation. Patient states that due to the stomach pains with unable to eat or drink well today. She denies fevers chills. Lab work shows leukocytosis of 14.2, hemoglobin of 10.7 no known history of anemia, troponins are negative, CT chest abdomen pelvis show right middle lobe pneumonia with a large right-sided pleural effusion and massive gas distention of stomach. EKG shows sinus tachycardia at 1119. NG tube was placed in the ER for gastric decompression. She has been started on meropenem. Patient remains tachycardic. Leukocytosis worsened to 20 K. will add MRSA coverage with vancomycin and add atypical coverage with doxycycline. Continue NG decompression. Leukocytosis continues to worsen Sepsis borderline blood pressure. Will give IV albumin. Right middle lobe pneumonia. Procalcitonin is high. Nasal MRSA came back negative. Continue on vancomycin meropenem and doxycycline Right pleural effusion worsened plan for thoracentesis this afternoon To rule out empyema. INR will be reversed with vitamin K. plan for thoracentesis when feasible Large gastric distention with no evidence of obstruction on NG decompression DVT prophylaxis SCDs History of bipolar disorder Factor 5 Leiden Anemia Code status full code Subjective Date/time seen: 12/17/24 13:11 Interval history: Patient feels a little better today. Tachycardic. But better. Blood pressure borderline. Hurts in her chest. Shortness of breath slightly better. Still on oxygen. Review of Systems Review of Systems: All systems reviewed & are unremarkable except as noted in HPI and below Exam Narrative: General: Ill appearing, appears stated age. Not in acute distress HEENT: normocephalic, atraumatic. Mucous membranes moist. NG in place Respiratory: Diminished breath sounds on right side. Mild rhonchi on left Cardiovascular: Tachycardic sinus on telemetry normal S1-S2 upon ascultation. No murmurs, rubs, or gallops Abdomen: Soft, round, no pulsatile masses, nondistended and nontender. No rebound, no guarding. Extremities: No cyanosis, clubbing, or edema present. Pulses are palpable 2/2. Active ROM to all four extremities. Neuro: Alert and orientated x 4. PERRLA. Cranial nerves 2-12 intact without focal deficit. Skin: Warm, dry, and intact, without rash, erythema, or lesion. Psych: pleasant, cooperative, normal speech, normal affect, no hallucinations, no dysarthia Objective Data Vital Signs Vital Signs: Vital Signs - 24 hr 12/16/24 14:00 12/16/24 15:46 12/16/24 16:00 Temperature 101.6 F H Pulse Rate 112 H Respiratory Rate Blood Pressure Pulse Oximetry 98 Oxygen Delivery Nasal Cannula Oxygen Flow Rate 2 12/16/24 16:00 12/16/24 16:00 12/16/24 17:13 Temperature 101.3 F H 98.8 F Pulse Rate 121 H 116 H Respiratory Rate 24 H Blood Pressure 106/65 Pulse Oximetry 97 Oxygen Delivery Oxygen Flow Rate 12/16/24 18:00 12/16/24 20:00 12/16/24 20:00 Temperature Pulse Rate 99 88 Respiratory Rate Blood Pressure Pulse Oximetry 97 Oxygen Delivery Nasal Cannula Oxygen Flow Rate 2 12/16/24 20:04 12/16/24 22:00 12/16/24 23:20 Temperature 98.4 F 98.1 F Pulse Rate 103 H 101 H 100 Respiratory Rate 24 H 20 Blood Pressure 101/59 L 92/52 L Pulse Oximetry 97 99 Oxygen Delivery Oxygen Flow Rate 12/16/24 23:48 12/17/24 00:00 12/17/24 02:00 Temperature Pulse Rate 95 94 Respiratory Rate Blood Pressure Pulse Oximetry 99 Oxygen Delivery Nasal Cannula Oxygen Flow Rate 2 12/17/24 03:50 12/17/24 04:00 12/17/24 04:00 Temperature 98.1 F Pulse Rate 97 80 Respiratory Rate 20 Blood Pressure 94/52 L Pulse Oximetry 98 98 Oxygen Delivery Nasal Cannula Oxygen Flow Rate 2 12/17/24 06:00 12/17/24 07:28 12/17/24 08:00 Temperature 98.6 F Pulse Rate 93 104 H Respiratory Rate 16 Blood Pressure 92/55 L Pulse Oximetry 98 99 Oxygen Delivery Nasal Cannula Oxygen Flow Rate 2 12/17/24 08:00 12/17/24 10:00 12/17/24 11:35 Temperature 98.1 F Pulse Rate 104 H 104 H 111 H Respiratory Rate 18 Blood Pressure 85/48 L Pulse Oximetry 98 Oxygen Delivery Oxygen Flow Rate Intake/Output Intake/Output: Intake & Output 12/14/24 12/15/24 12/16/24 12/17/24 23:59 23:59 23:59 23:59 Intake Total 1959 2548.3 1208.4 Output Total 850 450 Balance 1959 1698.3 758.4 Meds/Results Medications: Active Medications Generic Name Dose Route Start Last Admin Trade Name Freq PRN Reason Stop Dose Admin Acetaminophen 650 mg 12/15/24 23:15 12/16/24 15:46 Acetaminophen 325 Mg Tablet PO 650 mg Q4H PRN Administration Mild Pain (1-3) or Fever Aspirin 81 mg 12/16/24 08:00 12/17/24 09:06 Aspirin 81 Mg Chewable Tablet PO Not Given DAILY@0800 JUAN DANIEL Bisacodyl 10 mg 12/15/24 21:41 Bisacodyl 10 Mg Suppository RECTAL QAM PRN Constipation Clonazepam 0.25 mg 12/15/24 23:20 Clonazepam (*Crx) 0.25 Mg Tablet PO Q6H PRN Anxiety Escitalopram Oxalate 10 mg 12/16/24 09:00 12/17/24 09:09 Escitalopram Oxalate 10 Mg Tablet PO 10 mg DAILY JUAN DANIEL Administration Famotidine 20 mg 12/15/24 21:00 12/17/24 09:10 Famotidine 20 Mg/2 Ml Vial IV PUSH 20 mg Q12HR JUAN DANIEL Administration Hydromorphone HCl 0.5 mg 12/15/24 17:20 12/17/24 09:19 Hydromorphone Hcl Inj (*Crx) 2 Mg/Ml Vial IV PUSH 0.5 mg Q4H PRN Administration Pain Rated 7-10 Meropenem 1 gm in 100 mls @ 200 mls/hr 12/16/24 02:00 12/17/24 10:52 IVPB 200 mls/hr Q8H JUAN DANIEL Administration Sodium Chloride 1,000 mls @ 125 mls/hr 12/15/24 21:45 12/17/24 11:51 Normal Saline Iv IV CONT 100 mls/hr .Q8H JUAN DANIEL Administration Vancomycin HCl 1,250 mg in 250 mls @ 166.667 mls/hr 12/16/24 23:00 12/17/24 11:51 Vancomycin 1,250 Mg/Ns 250 Ml IVPB 150 mls/hr Q12H JUAN DANIEL Administration Albumin Human 200 mls @ 60 mls/hr 12/17/24 12:15 12/17/24 12:55 Albutein IVPB 12/17/24 15:34 60 mls/hr ONCE ONE Administration Levofloxacin/Dextrose 750 mg in 150 mls @ 100 mls/hr 12/17/24 13:09 Levaquin 750 Mg/D5w 150 Ml IVPB 12/17/24 14:38 ONCE ONE Ketorolac Tromethamine 15 mg 12/15/24 22:00 12/17/24 11:49 Ketorolac 15 Mg/Ml Vial (*Bkc) IV PUSH 15 mg Q6HR JUAN DANIEL Administration Lamotrigine 200 mg 12/15/24 21:40 12/17/24 09:09 Lamotrigine 100 Mg Tablet PO 200 mg Q12HR JUAN DANIEL Administration Loratadine 10 mg 12/16/24 09:00 12/17/24 09:09 Loratadine 10 Mg Tablet PO 10 mg DAILY JUAN DANIEL Administration Metoclopramide HCl 10 mg 12/16/24 00:00 12/17/24 12:18 Metoclopramide Hcl Inj 10 Mg/2 Ml Vial IV PUSH 10 mg Q6HR JUAN DANIEL Administration Nortriptyline HCl 50 mg 12/15/24 21:40 12/16/24 20:07 Nortriptyline Hcl 25 Mg Capsule PO 50 mg HS JUAN DANIEL Administration Pantoprazole Sodium 40 mg 12/16/24 09:00 12/17/24 09:10 Pantoprazole Sodium Iv 40 Mg Vial IV PUSH 40 mg QAM JUAN DANIEL Administration Perflutren Lipid Microsphere 0 ml 12/17/24 12:57 Perflutren Lipid Microspheres 1.5 Ml Vial Diluted To 10 Ml Total Volume IV PUSH 12/20/24 12:57 ONCE PRN adequate visualization Protocol Radiology Results: ITS Impressions Chest/Abdomen/Pelvis CT 12/15/24 16:30 IMPRESSION: Right middle lobe pneumonia with a large right-sided pleural effusion. Massive gaseous distention of the stomach Abdomen X-Ray 12/16/24 06:30 Impression: Nonspecific bowel gas pattern. NG tube in place. Chest X-Ray 12/16/24 06:39 Impression: Large right pleural effusion. Minimal haziness left lung base, nonspecific. NG tube in place. Labs Labs: Laboratory Results - last 24 hr 12/17/24 12/17/24 12/17/24 03:43 08:30 08:34 WBC 24.9 H RBC 2.98 L Hgb 8.5 L Hct 27.4 L MCV 91.9 MCH 28.5 MCHC 31.0 L RDW 13.2 Plt Count 263 MPV 8.9 Immature Gran % (Auto) 2.1 H Neut % (Auto) 89.3 H Lymph % (Auto) 3.3 L [place] % (Auto) 3.9 Eos % (Auto) 0.9 Baso % (Auto) 0.5 Lymph # (Auto) 0.83 L [place] # (Auto) 1.0 H Eos # (Auto) 0.2 Baso # (Auto) 0.1 Abs Immat Gran (auto) 0.52 H Absolute Neuts (auto) 22.2 H Absolute Nucleated RBC 0.000 Band Neutrophils % Not Reportable Nucleated RBC % 0.0 Platelet Estimate Adequate Hypochromasia 1+ Microcytosis 1+ Schistocytes None seen PT 25.2 H D INR 2.3 APTT 40.5 H Sodium 139 Potassium 4.1 Chloride 110 H Carbon Dioxide 22 Anion Gap 7 BUN 15 D Creatinine 0.91 Estim Creat Clear Calc 77 Estimated GFR > 60 Glucose 96 Calcium 8.6 Magnesium 1.8 Total Bilirubin 0.4 AST 22 ALT 13 Alkaline Phosphatase 181 H Lactate Dehydrogenase 162 Total Protein 5.8 L Albumin 2.6 L
[2024-12-17 13:31] LABS: Influenza A QL RT-PCR Negative (Negative); Influenza B QL RT-PCR Negative (Negative); RSV RNA, RT-PCR Negative (Negative); SARS-CoV-2 RNA PCR Negative (Negative)
[2024-12-17] MEDS: PHYTONADIONE ADULT INJ 10 MG in DEXTROSE 5% IN WATER 50 ML 100 MG IVPB (15:01)
[2024-12-17] MEDS: levoFLOXacin 750 MG/D5W 150 ML 750 MG/150 ML BAG 100 MG IVPB (15:07)
[2024-12-17] MEDS: NORTRIPTYLINE HCL 25 MG CAPSULE 50 MG PO (21:13)
[2024-12-17 22:19] LABS: Vancomycin Trough 15.8 ug/mL (10.0-20.0)
[2024-12-18] VITALS (20 sets, daily range): BP systolic 107–126; BP diastolic 61–74; PULSE 91–119; RESP 16–28; TEMP 36.6–37.2; O2SAT 94–100
[2024-12-18] MEDS: MEROPENEM 1 GM/NS 100 ML 1 GM/100 ML BAG IVPB ×2 (02:22→13:03)
--- NOTE | 2024-12-18 03:18 | PC.NURSE ---
Staff to pt's bedside to hang IV antibiotic. Pt experiencing notable change in breathing. Pt states since she used the BSC, she has felt like she can't breathe. RR 28, HR 120. Expiratory wheezing to bilateral upper lobes. BENNETT Curry notified. STAT chest xray ordered. IV fluids placed on hold. Albumin d/c'd. Pt's lungs reassessed when radiology entered room. No breath sounds heard to RLL, RML, with decreased aeration to RUL. BENNETT Curry notified that chest xray was obtained and of pt's current breath sounds. New order for bipap. Pt currently tolerating bipap.
[2024-12-18 04:27] LABS: Hematocrit 26.5 % (37.0-47.0); Hemoglobin 8.1 g/dL (12.0-15.0); Mean Corpuscular HGB Conc 30.6 g/dl (32-36); Mean Corpuscular Hemoglobin 28.5 pg (26-34); Mean Corpuscular Volume 93.3 fl (80-100); Platelet Count Result 236 k/mm3 (150-375); Red Blood Count 2.84 M/mm3 (4.2-5.4); Red Cell Distribution Width 13.6 % (11.5-14.5); White Blood Count 20.6 K/mm3 (4.5-10.0)
[2024-12-18 04:40] LABS: Fibrinogen 620 mg/dl (215-510)
[2024-12-18 04:42] LABS: Partial Thromboplastin Time 42.9 Seconds (22.3-36.8)
--- NOTE | 2024-12-18 04:52 | PC.NURSE ---
Updated BENNETT Candelario to pt's respiratory status. No audible breath sounds to right lobe. RR 20-21. Pt states she feels ok. Reported INR of 2.0. No new orders at this time.
[2024-12-18 04:54] LABS: Alanine Aminotransferase 9 U/L (6-35); Albumin Level 3.4 g/dL (3.5-5.1); Alkaline Phosphatase 61 U/L (38-126); Anion Gap 12 mmol/L (4-12); Aspartate Amino Transferase 17 U/L (14-36); Bilirubin,Total 0.4 mg/dL (0.2-1.3); Blood Urea Nitrogen 15 mg/dL (7-17); Carbon Dioxide 18 mmol/L (22-30); Chloride 112 mmol/L (98-107); Estimated CRCL calculation 80 ml/min; Estimated Glomerular Filt Rate > 60; Glucose 80 mg/dL (65-110); Potassium 4.3 mmol/L (3.4-5.0); Sodium 142 mmol/L (137-145); Total Protein 6.3 g/dL (6.3-8.2)
[2024-12-18 04:56] LABS: NT Pro B Type Natriuretic Pept 778 pg/mL (19.9-100)
[2024-12-18 05:09] LABS: Band Neutrophils Percent 13 % (0-6); Burr Cells 1+; Eosinophils Absolute Manual 0.41 K/mm3 (0.02-0.50); Eosinophils Percent Manual 2 % (0-4); Lymphocytes Absolute Manual 0.82 K/mm3 (1.1-4.5); Monocytes Absolute Manual 0.41 K/mm3 (0.1-0.90); Monocytes Percent Manual 2 % (3-9); Neutrophils Absolute Manual 18.95 K/mm3 (1.3-6.7); Neutrophils Percent Manual 79 % (46-73); Ovalocytes 1+; Platelet Estimate Adequate (Adequate); Schistocytes None Seen; Total Cells Counted 100
[2024-12-18] MEDS: METOCLOPRAMIDE HCL INJ 10 MG/2 ML VIAL IV PUSH ×2 (06:23→12:26)
[2024-12-18] MEDS: KETOROLAC 15 MG/ML VIAL (*BKC) IV PUSH ×2 (06:23→12:26)
[2024-12-18] MEDS: HYDROmorphone HCL INJ (*CRX) 2 MG/ML VIAL 0.5 MG IV PUSH (06:44)
--- NOTE | 2024-12-18 06:50 | PC.NURSE ---
Lab called [facility] staff to verify that Thrombin time order was correct, as it was ordered STAT, and the lab is a [facility] send out. Verified with BENNETT Candelario, who states I want it drawn and sent out immediately. Notified Lizbeth in lab of conversation.
[2024-12-18 09:32] LABS: CRP 23.8 mg/dL (<1.0)
[2024-12-18] MEDS: LORATADINE 10 MG TABLET PO (09:43)
[2024-12-18] MEDS: lamoTRIgine 100 MG TABLET 200 MG PO (09:43)
[2024-12-18] MEDS: ESCITALOPRAM OXALATE 10 MG TABLET PO (09:43)
[2024-12-18] MEDS: PANTOPRAZOLE SODIUM IV 40 MG VIAL IV PUSH (09:43)
[2024-12-18] MEDS: ASPIRIN 81 MG CHEWABLE TABLET PO (09:45)
[2024-12-18] MEDS: FAMOTIDINE 20 MG/2 ML VIAL IV PUSH (09:45)
[2024-12-18] MEDS: SODIUM CHLORIDE 0.9% IV 250 ML 30 ML IV CONT (09:45)
[2024-12-18] MEDS: TUBING, BLOOD PLUM PUMP TUBING 1 EACH XX ×2 (09:45→09:46)
[2024-12-18 10:16] LABS: Procalcitonin 5.1 ng/mL
--- NOTE | 2024-12-18 10:35 | P.PNPL_ITS ---
Progress Note: A&P Assessment and Plan (1) Pneumonia: Code(s): J18.9 - Pneumonia, unspecified organism Status: Acute Assessment and Plan: patient carries a history of childhood asthma but has not been on no inhalers since high school and has no history of tobacco use or any lung disease at this time. She is on limited in her activities of daily living up this current illness she was walking 12,000 steps a day. On no inhaled medicines. Patient presents with 8 day history of dry cough, with progression to shortness of breath, back pain. She has a leukocytosis on presentation of 14.2, she was febrile and her CT scan of the chest shows a right middle lobe consolidative infiltrate with no proximal airway obstruction, possible necrosis within the right middle lobe and moderate right pleural effusion. She was started on meropenem, vancomycin and doxycycline were added on 12/16. 12/17/2024: The patient tells me she has 15% back to her baseline. she still has a cough that is the same. She is producing no phlegm and no hemoptysis.he was 5-10%. White blood cell count 24.9, creatinine 0.91. Cumulative she is positive 3.6 L since admission. Her weight today is 66.9 with an admission weight of 60.9. When I enter the room she was on 2 L with saturation 96%. I decreased her room air and after 21 minutes her room air saturations were 93%. Her INR is 2.3 and her thoracentesis was canceled today. Plan: Leukocytosis is worsening although she is afebrile today. I will change her doxycycline to Levaquin which will continue to cover atypicals and provide additional Gram-negative coverage. Continue meropenem, day 3 and vancomycin, day 2. I will send a COVID, RSV, influenza RT PCR assay, I will send a respiratory pathogen panel, urine for Legionella, urine for pneumococcal antigen. Blood cultures are pending. She is not making any phlegm at this time. 12/18/24: At about 2:30 this morning the patient developed acute shortness of breath and chest x-ray demonstrated whiteout of the right hemithorax with shift of the mediastinum to the left. Patient was placed on BiPAP with improvement. Currently the patient remains on BiPAP set rate 18 breathing 20, pressures 10/5 with tidal volumes 363 and 30% FiO2 with saturations 100%. Patient told me these settings were uncomfortable and I changed her to the noninvasive ventilation with the AVAPS mode and adjusted the settings to comfort resulting in a rate of 14, tidal volume 450, EPAP 4, minimal inspiratory pressure 5, maximal inspiratory pressure 25, inspiratory time 1.0, rise of 5 which is the slowest and 30% FiO2 with saturations 100%. Currently she tells me she is about the same. She has shortness of breath at rest and with activity. She has absent breath sounds on the right. She is afebrile. White blood cell count 20.6, creatinine 0.88, BNP decreased from 962 on 12/16/2024 to 778 today. CRP is 23.8. Procalcitonin is elevated but decreased from 8.3 on 12/16/2024 to 5.1 today. Patient has 1 of 2 blood cultures with Gram-positive cocci. INR is 2.0 patient receiving 2 units of FFP. Scheduled for thoracentesis at noon. Plan: Patient now bacteremic with Gram-positive cocci with rapidly expanding right pleural effusion now occupying the entire right hemithorax. I anticipate she has an empyema or a complicated right pleural effusion that is not rapidly accumulating. Recommend transfer patient to higher level of care facility for thoracic surgery consultation. Patient is in agreement. She is status post doxycycline from 12/16-12/17. Will continue meropenem, day 4, vancomycin day 3, and levofloxacin day 2. Discussed with Dr. Foster, will follow with you. (2) Pleural effusion: Code(s): J90 - Pleural effusion, not elsewhere classified Status: Acute Assessment and Plan: Patient with right middle lobe pneumonia and moderate right pleural effusion. 12/17/2024: Her INR is 2.3 and her thoracentesis was canceled today. Plan: Patient to have thoracentesis once her INR is corrected. Will discuss Vitamin K with hospitalist. Given vitamin K 10 mg IV. 12/18/2024: INR is 2.0, she has received 2 units of FFP. Plan: Goal INR is 1.8 her lasts for thoracentesis per Radiology team. Subjective Date/time seen: 12/18/24 10:35 Interval history: 12/17/2024: This is a new pulmonary consult for pneumonia with pleural effusion. 29-year-old with a history of childhood asthma, irritable bowel syndrome, bipolar, depression, factor 5 Leiden carrier. patient tells me she was diagnosed with asthma in 8th grade and remembers taking an albuterol inhaler p.r.n. about 1 time a week through high school. She has not taken any rescue albuterol or inhalers since high school. Three weeks ago when she was feeling completely healthy she has no respiratory limitations in her activities of daily living. 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 She does not go to the gymnasium. She is on no respiratory medications. Regarding her factor 5 Leiden carrier her mother developed blood clots and has factor 5 Leiden disease. Patient denies any having any blood clots. On 12/09/2024 the patient developed a dry cough. The dry cough persisted and Worsened. On 12/12 the patient saw her PCP and told her the cough was due to allergies and gave her Mucinex. Patient developed severe back pain that was worse with coughing. On 12/14/2023 the patient developed shortness of breath at rest and with exertion but again denied fever, chills, rigors. Her symptoms progressed and she presented to the emergency room on 12/15/2024. Patient denies any vomiting episodes, aspiration, loss of consciousness, blackouts, seizures or chest trauma. On 12/15/2024 patient was in mild respiratory distress blood pressure 118/84, heart rate 129, respirations 20, room air saturations 100. White blood cell count 14.2, eosinophils 0.9%. Creatinine 0.56. Troponin less than 0.012. patient also complained of abdominal pain with coughing. CT scan chest abdomen pelvis showed moderate right-sided pleural effusion, right middle lobe consolidation with possible areas of necrosis, distended esophagus and stomach. Patient was started on meropenem. 12/16/2024: Patient is afebrile. She required 2 L nasal cannula. Vancomycin and doxycycline were added. She tells me that she was minimally improved and feeling approximately 5-10% back to her baseline. Patient had a fever to 38.5 at 4:00 p.m. White blood cell count is 20.9. 12/17/2024: The patient tells me she has 15% back to her baseline. she still has a cough that is the same. She is producing no phlegm and no hemoptysis.he was 5-10%. White blood cell count 24.9, creatinine 0.91. Cumulative she is positive 3.6 L since admission. Her weight today is 66.9 with an admission weight of 60.9. When I enter the room she was on 2 L with saturation 96%. I decreased her room air and after 21 minutes her room air saturations were 93%. Her INR is 2.3 and her thoracentesis was canceled today. Given 10 mg IV vitamin K. 12/18/24: At about 230 this morning the patient developed acute shortness of breath and chest x-ray demonstrated whiteout of the right hemithorax with shift of the mediastinum to the left. Patient was placed on BiPAP with improvement. Currently the patient remains on BiPAP set rate 18 breathing 20, pressures 10/5 with tidal volumes 363 and 30% FiO2 with saturations 100%. Patient told me these settings were uncomfortable and I changed her to the noninvasive ventilation with the AVAPS mode and adjusted the settings to comfort resulting in a rate of 14, tidal volume 450, EPAP 4, minimal inspiratory pressure 5, maximal inspiratory pressure 25, inspiratory time 1.0, rise of 5 which is the slowest and 30% FiO2 with saturations 100%. Currently she tells me she is about the same. She has shortness of breath at rest and with activity. She has absent breath sounds on the right. She is afebrile. White blood cell count 20.6, creatinine 0.88, BNP decreased from 962 on 12/16/2024 to 778 today. CRP is 23.8. Procalcitonin is elevated but decreased from 8.3 on 12/16/2024 to 5.1 today. Patient has 1 of 2 blood cultures with Gram-positive cocci. INR is 2.0 patient receiving 2 units of FFP. Scheduled for thoracentesis at noon. DATA: CLINICAL INDICATION: Right-sided chest pain. COMPARISON: 03/28/2020 and 04/07/2017 . TECHNIQUE: An enhanced CT of the abdomen and pelvis was performed utilizing multislice spiral technique reconstructed at 5 mm slice thickness. Coronal and sagittal reconstructions were performed. This CT examination was performed utilizing dose reduction techniques. DLP: 500 mGy-cm FINDINGS/OBSERVATIONS: Lung: Heterogeneous consolidation encompassing the entirety of the right middle lobe. Large right-sided pleural effusion with adjacent compressive atelectasis. The left hemithorax demonstrates interstitial thickening but is otherwise clear. The heart is of normal size, without pericardial effusion. Mediastinum: Calcified lymph nodes within the mediastinum suggesting prior granulomatous disease. No pathologically enlarged or morphologically suspicious lymph nodes are identified within the mediastinum, bilateral axilla, within the soft tissues of the anterior chest wall. Soft tissues of the chest: Unremarkable. Bones of the chest: No acute fracture. No lytic or blastic lesions are identified. Liver: The liver enhances homogeneously and is enlarged measuring 20 cm in longitudinal dimension. Gallbladder and biliary system: The gallbladder is only minimally distended and otherwise unremarkable. Pancreas: The pancreas enhances homogeneously, without ductal dilatation. Spleen: Spleen enhances homogeneously and is not enlarged Kidneys: The bilateral kidneys enhance symmetrically without hydronephrosis or renal calculi. Adrenal glands: Unremarkable. Gastrointestinal tract: Massive gaseous distention of the stomach without a clear source of obstruction. The air-filled esophagus is also distended. Trace fecal stasis. Appendix: The appendix is not definitively visualized. However, no pericecal inflammatory change is identified suggest the presence of acute appendicitis. Vasculature: No calcified atherosclerotic disease is present. No aneurysmal dilatation. Lymph nodes: Scattered nonpathologically enlarged lymph nodes within the root of the mesentery and deep in the pelvis. Pelvic structures: The bladder is decompressed and otherwise unremarkable. Uterus is anteverted and anteflexed Body wall and musculoskeletal: Small fat-containing umbilical hernia. No significant degenerative disease within the lower thoracic and lumbar spines. IMPRESSION: Right middle lobe pneumonia with a large right-sided pleural effusion. Massive gaseous distention of the stomach Review of Systems Constitutional: Constitutional: Reports no additional constitutional complaints Eyes: Eyes: Reports no additional eye complaints ENT: Reports system reviewed and no additional complaints, except as documented Cardiovascular: Cardiovascular: Reports no additional cardiovascular complaints Respiratory: Respiratory: Reports no additional respiratory complaints Gastrointestinal: Gastrointestinal: Reports no additional gastrointestinal complaints Musculoskeletal: Musculoskeletal: Reports no additional musculoskeletal complaints Neurologic: Reports system reviewed and no additional complaints, except as documented Psychiatric: Psychiatric: Reports no additional psychiatric complaints Endocrine: Endocrine: Reports no additional endocrine complaints Hematologic/Lymphatic: Hematologic/Lymphatic: Reports no additional hematologic/lymphatic complaints Allergic/Immunologic: Allergic/Immunologic: Reports no additional allergic/immunologic complaints Exam Const: General: cooperative, healthy appearing and comfortable Orientation/consciousness: oriented to person, oriented to place and oriented to time Other: Tachycardic HENMT: Head: normal to inspection Ears: hearing grossly normal bilaterally Eyes: General: appearance normal, both eyes and all related structures Neck: Neck: normal visual inspection Chest: Chest palpation & inspection: normal inspection of the chest Resp: Effort & Inspection: normal respiratory effort and able to speak in complete sentences Auscultation: no crackles, no rales, no rhonchi, no wheezes and diminished lung sounds Other: Absent breath sounds on the right, left is clear. Cardio: Jugular venous distension: no JVD Other: tachycardic GI: Inspection: normal to inspection Skin: General skin exam: normal color Neuro: General: oriented to person, oriented to place and oriented to time Extrem: General: normal to inspection and no edema Psych: Appearance: grossly normal Objective Data Vital Signs Vital Signs: Vital Signs - 24 hr 12/17/24 11:35 12/17/24 12:00 12/17/24 12:00 Temperature 36.7 C Pulse Rate 111 H 118 H Respiratory Rate 18 Blood Pressure 85/48 L Pulse Oximetry 98 88 L Oxygen Delivery Room Air Oxygen Flow Rate Fraction of Inspired Oxygen 12/17/24 14:00 12/17/24 14:19 12/17/24 15:42 Temperature 36.6 C Pulse Rate 120 H 123 H Respiratory Rate 20 Blood Pressure 102/54 L 107/61 Pulse Oximetry 99 Oxygen Delivery Oxygen Flow Rate Fraction of Inspired Oxygen 12/17/24 16:00 12/17/24 16:00 12/17/24 18:00 Temperature Pulse Rate 115 H 112 H Respiratory Rate Blood Pressure Pulse Oximetry 98 Oxygen Delivery Nasal Cannula Oxygen Flow Rate 2 Fraction of Inspired Oxygen 12/17/24 20:00 12/17/24 20:00 12/17/24 20:00 Temperature 36.3 C L Pulse Rate 112 H 109 H Respiratory Rate 20 Blood Pressure 109/56 L Pulse Oximetry 100 98 Oxygen Delivery Nasal Cannula Oxygen Flow Rate 2 Fraction of Inspired Oxygen 12/17/24 22:00 12/17/24 23:45 12/18/24 00:00 Temperature 36.7 C Pulse Rate 101 H 109 H Respiratory Rate 22 H Blood Pressure 115/69 Pulse Oximetry 97 97 Oxygen Delivery Nasal Cannula Oxygen Flow Rate 2 Fraction of Inspired Oxygen 12/18/24 00:00 12/18/24 02:00 12/18/24 02:25 Temperature Pulse Rate 107 H 99 119 H Respiratory Rate 28 H Blood Pressure 108/73 Pulse Oximetry 98 Oxygen Delivery Oxygen Flow Rate Fraction of Inspired Oxygen 12/18/24 02:40 12/18/24 02:55 12/18/24 04:00 Temperature 36.6 C Pulse Rate 110 H 104 H Respiratory Rate 24 H 22 H Blood Pressure 113/66 Pulse Oximetry 98 98 100 Oxygen Delivery Nasal Cannula BiPAP Oxygen Flow Rate 2 Fraction of Inspired Oxygen 12/18/24 04:00 12/18/24 04:00 12/18/24 06:00 Temperature Pulse Rate 91 95 Respiratory Rate Blood Pressure Pulse Oximetry Oxygen Delivery BiPAP Oxygen Flow Rate Fraction of Inspired Oxygen 30 12/18/24 08:00 12/18/24 08:21 12/18/24 08:38 Temperature 36.7 C 36.7 C 36.7 C Pulse Rate 105 H 108 H 108 H Respiratory Rate 22 H 16 16 Blood Pressure 108/61 107/65 107/65 Pulse Oximetry 99 100 100 Oxygen Delivery Oxygen Flow Rate Fraction of Inspired Oxygen 12/18/24 08:53 12/18/24 09:36 12/18/24 09:53 Temperature 36.8 C 36.8 C 36.9 C Pulse Rate 119 H 114 H 108 H Respiratory Rate 24 H 20 20 Blood Pressure 115/67 115/67 126/73 Pulse Oximetry 100 94 100 Oxygen Delivery Oxygen Flow Rate Fraction of Inspired Oxygen 12/18/24 10:09 Temperature Pulse Rate Respiratory Rate Blood Pressure Pulse Oximetry 97 Oxygen Delivery Nasal Cannula Oxygen Flow Rate 2 Fraction of Inspired Oxygen Intake/Output Intake/Output: Intake & Output 12/15/24 12/16/24 12/17/24 12/18/24 23:59 23:59 23:59 23:59 Intake Total 1959 2548.3 2833.4 1261.0 Output Total 850 1550 525 Balance 1959 1698.3 1283.4 736.0 Meds/Results Medications: Active Medications Generic Name Dose Route Start Last Admin Trade Name Freq PRN Reason Stop Dose Admin Acetaminophen 650 mg 12/15/24 23:15 12/16/24 15:46 Acetaminophen 325 Mg Tablet PO 650 mg Q4H PRN Administration Mild Pain (1-3) or Fever Aspirin 81 mg 12/16/24 08:00 12/18/24 09:45 Aspirin 81 Mg Chewable Tablet PO 81 mg DAILY@0800 JUAN DANIEL Administration Bisacodyl 10 mg 12/15/24 21:41 Bisacodyl 10 Mg Suppository RECTAL QAM PRN Constipation Clonazepam 0.25 mg 12/15/24 23:20 Clonazepam (*Crx) 0.25 Mg Tablet PO Q6H PRN Anxiety Escitalopram Oxalate 10 mg 12/16/24 09:00 12/18/24 09:43 Escitalopram Oxalate 10 Mg Tablet PO 10 mg DAILY JUAN DANIEL Administration Famotidine 20 mg 12/15/24 21:00 12/18/24 09:45 Famotidine 20 Mg/2 Ml Vial IV PUSH 20 mg Q12HR JUAN DANIEL Administration Hydromorphone HCl 0.5 mg 12/15/24 17:20 12/18/24 06:44 Hydromorphone Hcl Inj (*Crx) 2 Mg/Ml Vial IV PUSH 0.5 mg Q4H PRN Administration Pain Rated 7-10 Meropenem 1 gm in 100 mls @ 200 mls/hr 12/16/24 02:00 12/18/24 02:52 IVPB Infused Q8H JUAN DANIEL Infusion Sodium Chloride 1,000 mls @ 125 mls/hr 12/15/24 21:45 12/18/24 07:30 Normal Saline Iv IV CONT Not Given .Q8H JUAN DANIEL Vancomycin HCl 1,250 mg in 250 mls @ 166.667 mls/hr 12/16/24 23:00 12/18/24 01:36 Vancomycin 1,250 Mg/Ns 250 Ml IVPB Infused Q12H JUAN DANIEL Infusion Sodium Chloride 250 mls @ 30 mls/hr 12/18/24 07:08 12/18/24 09:45 Normal Saline Iv IV CONT 12/18/24 15:27 30 mls/hr .Q8H20M STA Administration Levofloxacin/Dextrose 750 mg in 150 mls @ 100 mls/hr 12/18/24 15:00 Levaquin 750 Mg/D5w 150 Ml IVPB Q24H JUAN DANIEL Ketorolac Tromethamine 15 mg 12/15/24 22:00 12/18/24 06:23 Ketorolac 15 Mg/Ml Vial (*Bkc) IV PUSH 15 mg Q6HR JUAN DANIEL Administration Lamotrigine 200 mg 12/15/24 21:40 12/18/24 09:43 Lamotrigine 100 Mg Tablet PO 200 mg Q12HR JUAN DANIEL Administration Loratadine 10 mg 12/16/24 09:00 12/18/24 09:43 Loratadine 10 Mg Tablet PO 10 mg DAILY JUAN DANIEL Administration Metoclopramide HCl 10 mg 12/16/24 00:00 12/18/24 06:23 Metoclopramide Hcl Inj 10 Mg/2 Ml Vial IV PUSH 10 mg Q6HR JUAN DANIEL Administration Nortriptyline HCl 50 mg 12/15/24 21:40 12/17/24 21:13 Nortriptyline Hcl 25 Mg Capsule PO 50 mg HS JUAN DANIEL Administration Pantoprazole Sodium 40 mg 12/16/24 09:00 12/18/24 09:43 Pantoprazole Sodium Iv 40 Mg Vial IV PUSH 40 mg QAM JUAN DANIEL Administration Perflutren Lipid Microsphere 0 ml 12/17/24 12:57 Perflutren Lipid Microspheres 1.5 Ml Vial Diluted To 10 Ml Total Volume IV PUSH 12/20/24 12:57 ONCE PRN adequate visualization Protocol Radiology Results: ITS Impressions Chest/Abdomen/Pelvis CT 12/15/24 16:30 IMPRESSION: Right middle lobe pneumonia with a large right-sided pleural effusion. Massive gaseous distention of the stomach Abdomen X-Ray 12/16/24 06:30 Impression: Nonspecific bowel gas pattern. NG tube in place. Chest X-Ray 12/18/24 05:28 Impression: Whiteout of the right hemithorax, most compatible with large pleural effusion. NG tube in place. Labs Labs: Laboratory Results - last 24 hr 12/17/24 12/17/24 12/17/24 08:30 12:46 21:54 WBC RBC Hgb Hct MCV MCH MCHC RDW Plt Count MPV Immature Gran % (Auto) Neut % (Auto) Lymph % (Auto) [place] % (Auto) Eos % (Auto) Baso % (Auto) Lymph # (Auto) [place] # (Auto) Eos # (Auto) Baso # (Auto) Abs Immat Gran (auto) Absolute Neuts (auto) Absolute Nucleated RBC Total Counted Neutrophils % (Manual) Band Neutrophils % Lymphocytes % (Manual) Monocytes % (Manual) Eosinophils % (Manual) Nucleated RBC % Abs Neuts (Manual) Abs Lymphs (Manual) Abs Monocytes (Manual) Absolute Eos (Manual) Platelet Estimate Ovalocytes [place] Cells Schistocytes PT INR APTT Fibrinogen D-Dimer Sodium Potassium Chloride Carbon Dioxide Anion Gap BUN Creatinine Estim Creat Clear Calc Estimated GFR Glucose Calcium Magnesium Total Bilirubin AST ALT Alkaline Phosphatase Lactate Dehydrogenase 162 C-Reactive Protein NT-Pro-B Natriuret Pep Total Protein Albumin Procalcitonin Vancomycin Trough 15.8 Influenza A (RT-PCR) Negative Influenza B (RT-PCR) Negative RSV (RT-PCR) Negative SARS-CoV-2 RNA (RT-PCR) Negative Blood Type Antibody Screen 12/18/24 12/18/24 03:42 07:19 WBC 20.6 H RBC 2.84 L Hgb 8.1 L Hct 26.5 L MCV 93.3 MCH 28.5 MCHC 30.6 L RDW 13.6 Plt Count 236 MPV 9.0 Immature Gran % (Auto) Not Reportable Neut % (Auto) Not Reportable Lymph % (Auto) Not Reportable [place] % (Auto) Not Reportable Eos % (Auto) Not Reportable Baso % (Auto) Not Reportable Lymph # (Auto) Not Reportable [place] # (Auto) Not Reportable Eos # (Auto) Not Reportable Baso # (Auto) Not Reportable Abs Immat Gran (auto) Not Reportable Absolute Neuts (auto) Not Reportable Absolute Nucleated RBC Not Reportable Total Counted 100 Neutrophils % (Manual) 79 H Band Neutrophils % 13 H Lymphocytes % (Manual) 4.0 L Monocytes % (Manual) 2 L Eosinophils % (Manual) 2 Nucleated RBC % Not Reportable Abs Neuts (Manual) 18.95 H Abs Lymphs (Manual) 0.82 L Abs Monocytes (Manual) 0.41 Absolute Eos (Manual) 0.41 Platelet Estimate Adequate Ovalocytes 1+ [place] Cells 1+ Schistocytes None seen PT 22.0 H INR 2.0 APTT 42.9 H Fibrinogen 620 H D-Dimer 5.90 H Sodium 142 Potassium 4.3 Chloride 112 H Carbon Dioxide 18 L Anion Gap 12 BUN 15 Creatinine 0.88 Estim Creat Clear Calc 80 Estimated GFR > 60 Glucose 80 Calcium 9.0 Magnesium 2.0 Total Bilirubin 0.4 AST 17 ALT 9 Alkaline Phosphatase 61 Lactate Dehydrogenase C-Reactive Protein 23.8 H NT-Pro-B Natriuret Pep 778 H Total Protein 6.3 Albumin 3.4 L Procalcitonin 5.1 Vancomycin Trough Influenza A (RT-PCR) Influenza B (RT-PCR) RSV (RT-PCR) SARS-CoV-2 RNA (RT-PCR) Blood Type A Positive Antibody Screen Negative
[2024-12-18 12:45] LABS: INR 1.6; Prothrombin Time 19.2 Seconds (11.1-14.7)
--- NOTE | 2024-12-18 14:32 | PM.TDS ---
Transfer Discharge Sum: Prov Provider Date of admission: 12/16/24 09:18 Primary care physician: PHYSICIAN NOT ON STAFF Admitting clinician: Huy Foster MD Consults: 12/17/24 09:47 Consult to Physician Routine Comment: spoke with Dr. Neri @[phone] Consulting Provider: Lavelle Neri callisthenics instructor/MD group to consult: pulmonary Reason for consultation: pneumonia with effusion Has provider been notified: Yes DS: Admitting Diagnosis Discharge Date 12/18/2024 Admitting Diagnosis Shortness of breath DS: Discharge Diagnosis Discharge Diagnosis (1) Bipolar depression: Code(s): F31.9 - Bipolar disorder, unspecified Status: Acute (2) Factor V Leiden: Code(s): D68.51 - Activated protein C resistance Status: Acute (3) Gastric distention: Code(s): K31.89 - Other diseases of stomach and duodenum Status: Acute (4) Pneumonia: Code(s): J18.9 - Pneumonia, unspecified organism Status: Acute (5) Pleural effusion: Code(s): J90 - Pleural effusion, not elsewhere classified Status: Acute (6) Anemia: Code(s): D64.9 - Anemia, unspecified Status: Acute (7) Constipation: Code(s): K59.00 - Constipation, unspecified Status: Acute Transfer Discharge Sum: Med Medications Active and Home Medications: Home Medications lamotrigine 200 mg tablet (Lamictal) 200 mg PO BID 04/29/22 [History Confirmed 12/15/24] dextroamphetamine-amphetamine 20 mg tablet (Adderall) 20 mg PO DAILY 09/24/22 [History Confirmed 12/15/24] dicyclomine 10 mg capsule 10 mg PO TID PRN abdominal discomfort #90 caps 12/17/22 [Rx Confirmed 12/15/24] loratadine 10 mg tablet (Claritin) 10 mg PO DAILY #30 tabs 01/06/23 [Rx Confirmed 12/15/24] medroxyprogesterone 150 mg/mL intramuscular suspension 150 mg IM [id number] #1 mL 08/24/23 [Rx Confirmed 12/15/24] clonazepam 0.25 mg disintegrating tablet 0.25 mg PO PRN 12/15/24 [History Confirmed 12/15/24] escitalopram oxalate 10 mg tablet 10 mg PO DAILY 12/15/24 [History Confirmed 12/15/24] nortriptyline 25 mg capsule 50 mg PO .bedtime 12/15/24 [History Confirmed 12/15/24] Active Medications Acetaminophen (Acetaminophen 325 Mg Tablet) 650 mg PO Q4H PRN PRN Reason: Mild Pain (1-3) or Fever Last Admin: 12/16/24 15:46 Dose: 650 mg Aspirin (Aspirin 81 Mg Chewable Tablet) 81 mg PO DAILY@0800 COUNTS INCLUDE 234 BEDS AT THE [facility] Last Admin: 12/18/24 09:45 Dose: 81 mg Bisacodyl (Bisacodyl 10 Mg Suppository) 10 mg RECTAL QAM PRN PRN Reason: Constipation Clonazepam (Clonazepam (*Crx) 0.25 Mg Tablet) 0.25 mg PO Q6H PRN PRN Reason: Anxiety Escitalopram Oxalate (Escitalopram Oxalate 10 Mg Tablet) 10 mg PO DAILY COUNTS INCLUDE 234 BEDS AT THE [facility] Last Admin: 12/18/24 09:43 Dose: 10 mg Famotidine (Famotidine 20 Mg/2 Ml Vial) 20 mg IV PUSH Q12HR COUNTS INCLUDE 234 BEDS AT THE [facility] Last Admin: 12/18/24 09:45 Dose: 20 mg Hydromorphone HCl (Hydromorphone Hcl Inj (*Crx) 2 Mg/Ml Vial) 0.5 mg IV PUSH Q4H PRN PRN Reason: Pain Rated 7-10 Last Admin: 12/18/24 06:44 Dose: 0.5 mg Meropenem () 1 gm in 100 mls @ 200 mls/hr IVPB Q8H COUNTS INCLUDE 234 BEDS AT THE [facility] Last Admin: 12/18/24 13:03 Dose: 200 mls/hr Sodium Chloride (Normal Saline Iv) 1,000 mls @ 125 mls/hr IV CONT .Q8H COUNTS INCLUDE 234 BEDS AT THE [facility] Last Admin: 12/18/24 07:30 Dose: Not Given Vancomycin HCl (Vancomycin 1,250 Mg/Ns 250 Ml) 1,250 mg in 250 mls @ 166.667 mls/hr IVPB Q12H COUNTS INCLUDE 234 BEDS AT THE [facility] Last Infusion: 12/18/24 01:36 Dose: Infused Sodium Chloride (Normal Saline Iv) 250 mls @ 30 mls/hr IV CONT .Q8H20M STA Stop: 12/18/24 15:27 Last Admin: 12/18/24 09:45 Dose: 30 mls/hr Levofloxacin/Dextrose (Levaquin 750 Mg/D5w 150 Ml) 750 mg in 150 mls @ 100 mls/hr IVPB Q24H COUNTS INCLUDE 234 BEDS AT THE [facility] Ketorolac Tromethamine (Ketorolac 15 Mg/Ml Vial (*Bkc)) 15 mg IV PUSH Q6HR COUNTS INCLUDE 234 BEDS AT THE [facility] Last Admin: 12/18/24 12:26 Dose: 15 mg Lamotrigine (Lamotrigine 100 Mg Tablet) 200 mg PO Q12HR COUNTS INCLUDE 234 BEDS AT THE [facility] Last Admin: 12/18/24 09:43 Dose: 200 mg Loratadine (Loratadine 10 Mg Tablet) 10 mg PO DAILY COUNTS INCLUDE 234 BEDS AT THE [facility] Last Admin: 12/18/24 09:43 Dose: 10 mg Metoclopramide HCl (Metoclopramide Hcl Inj 10 Mg/2 Ml Vial) 10 mg IV PUSH Q6HR COUNTS INCLUDE 234 BEDS AT THE [facility] Last Admin: 12/18/24 12:26 Dose: 10 mg Nortriptyline HCl (Nortriptyline Hcl 25 Mg Capsule) 50 mg PO HS COUNTS INCLUDE 234 BEDS AT THE [facility] Last Admin: 12/17/24 21:13 Dose: 50 mg Pantoprazole Sodium (Pantoprazole Sodium Iv 40 Mg Vial) 40 mg IV PUSH QAM COUNTS INCLUDE 234 BEDS AT THE [facility] Last Admin: 12/18/24 09:43 Dose: 40 mg Perflutren Lipid Microsphere (Perflutren Lipid Microspheres 1.5 Ml Vial Diluted To 10 Ml Total Volume) 0 ml IV PUSH ONCE PRN; Protocol PRN Reason: adequate visualization Stop: 12/20/24 12:57 Transfer Discharge Sum: Hosp Hospital Course Hospital course: Annalise Renteria is a 29 year old female with past medical history of factor 5 deficiency bipolar and GI issues presents the hospital with shortness of breath and chest wall pain. Patient states that she has had a cough and back pain for about a week. She started having shortness of breath over the last few days. She also complains of stomach pain and chronic constipation. Patient states that due to the stomach pains with unable to eat or drink well today. She denies fevers chills. Lab work shows leukocytosis of 14.2, hemoglobin of 10.7 no known history of anemia, troponins are negative, CT chest abdomen pelvis show right middle lobe pneumonia with a large right-sided pleural effusion and massive gas distention of stomach. EKG shows sinus tachycardia at 1119. NG tube was placed in the ER for gastric decompression. She has been started on meropenem. Patient remains tachycardic. Leukocytosis worsened to 20 K. added MRSA coverage with vancomycin and add atypical coverage with doxycycline which was subsequently switched to Levaquin. Continue NG decompression. Leukocytosis continues to worsen with worsening respiratory status. Overnight on 12/18/2024 she was tachypneic and was placed on BiPAP support. Chest x-ray at the time showed complete whiteout right lung. Plan for thoracentesis however her INR came back elevated. She received a dose of vitamin K on 12/17/2024. INR did come down some to 2.0 and had ordered FFP for planned thoracentesis. Due to worsening respiratory status as well as suspected lung abscess/empyema patient was discussed with tertiary [facility] and was accepted and transferred there for further treatment. Sepsis borderline blood pressure. Received IV albumin with improvement Right middle lobe pneumonia. Procalcitonin is high. Nasal MRSA came back negative. Continue on vancomycin meropenem and doxycycline doxycycline switched to levofloxacin Right pleural effusion worsened plan for thoracentesis however elevated INR. Received vitamin K. also received 2 units of FFP. Large gastric distention with no evidence of obstruction on NG decompression. Bacteremia: With GPC in clusters tested positive on 12/18/2024 already on vancomycin. Need to await identification DVT prophylaxis SCDs History of bipolar disorder Factor 5 Leiden Anemia Code status full code Time Spent with Patient Time attestation: Total time spent providing and/or coordinating transfer services: 60 minutes Exam Narrative: General: Ill appearing, appears stated age. Not in acute distress HEENT: normocephalic, atraumatic. Mucous membranes moist. NG in place Respiratory: Diminished breath sounds on right side. Mild rhonchi on left Cardiovascular: Tachycardic sinus on telemetry normal S1-S2 upon ascultation. No murmurs, rubs, or gallops Abdomen: Soft, round, no pulsatile masses, nondistended and nontender. No rebound, no guarding. Extremities: No cyanosis, clubbing, or edema present. Pulses are palpable 2/2. Active ROM to all four extremities. Neuro: Alert and orientated x 4. PERRLA. Cranial nerves 2-12 intact without focal deficit. Skin: Warm, dry, and intact, without rash, erythema, or lesion. Psych: pleasant, cooperative, normal speech, normal affect, no hallucinations, no dysarthia DS: Data Data Completed and Pending Completed studies during hospitalization: Exam Type: CA echo doppler color flow Complete two-dimensional, color flow and Doppler transthoracic echocardiogram is performed. Staff Referring Physician: Antoinette Alexis PAC Mirror Framer: Elizabeth Varma Attending Provider: Huy Foster Summary 1. Left ventricular chamber dimension is normal. 2. Left ventricular systolic function is normal, estimated at 60-65. 3. Right ventricular systolic function is normal. 4. There is mild tricuspid valve regurgitation. Left Ventricle Left ventricular chamber dimension is normal. Left ventricular systolic function is normal, estimated at 60-65. There is no increased left ventricular wall thickness. Right Ventricle Right ventricular chamber dimension is normal. Right ventricular systolic function is normal. Left Atria Left atrial chamber dimension is normal. Right Atria Right atrial chamber dimension is normal. Atrial Septum Intact interatrial septum visualized by color flow imaging. Aortic Valve The aortic valve is trileaflet. There is no aortic valve stenosis. There is no aortic valve regurgitation. Pulmonic Valve The pulmonic valve is not well visualized. Mitral Valve There is trace mitral valve regurgitation. Tricuspid Valve There is mild tricuspid valve regurgitation. Pericardium/Pleural There is no pericardial effusion. Inferior Vena Cava Normal inferior vena cava with <50% collapse upon inspiration consistent with elevated right atrial pressure, 8 mmHg. Aorta The aortic root size at the sinus of Valsalva is normal. Pending studies at discharge: Pending at discharge 12/16/24 05:59 Cytology [PTH] Routine Labs on day of discharge: Labs from last 24 hours 12/18/24 12/18/24 12/18/24 12:22 07:19 03:42 WBC 20.6 H RBC 2.84 L Hgb 8.1 L Hct 26.5 L MCV 93.3 MCH 28.5 MCHC 30.6 L RDW 13.6 Plt Count 236 MPV 9.0 Immature Gran % (Auto) Not Reportable Neut % (Auto) Not Reportable Lymph % (Auto) Not Reportable Gray % (Auto) Not Reportable Eos % (Auto) Not Reportable Baso % (Auto) Not Reportable Lymph # (Auto) Not Reportable Gray # (Auto) Not Reportable Eos # (Auto) Not Reportable Baso # (Auto) Not Reportable Abs Immat Gran (auto) Not Reportable Absolute Neuts (auto) Not Reportable Absolute Nucleated RBC Not Reportable Total Counted 100 Neutrophils % (Manual) 79 H Band Neutrophils % 13 H Lymphocytes % (Manual) 4.0 L Monocytes % (Manual) 2 L Eosinophils % (Manual) 2 Nucleated RBC % Not Reportable Abs Neuts (Manual) 18.95 H Abs Lymphs (Manual) 0.82 L Abs Monocytes (Manual) 0.41 Absolute Eos (Manual) 0.41 Platelet Estimate Adequate Ovalocytes 1+ Alyssa Cells 1+ Schistocytes None seen PT 19.2 H 22.0 H INR 1.6 2.0 APTT 42.9 H Thrombin Time Fibrinogen 620 H D-Dimer 5.90 H Sodium 142 Potassium 4.3 Chloride 112 H Carbon Dioxide 18 L Anion Gap 12 BUN 15 Creatinine 0.88 Estim Creat Clear Calc 80 Estimated GFR > 60 Glucose 80 Calcium 9.0 Magnesium 2.0 Total Bilirubin 0.4 AST 17 ALT 9 Alkaline Phosphatase 61 C-Reactive Protein 23.8 H NT-Pro-B Natriuret Pep 778 H Total Protein 6.3 Albumin 3.4 L Procalcitonin 5.1 Vancomycin Trough Ur L.pneumophila Ag Mycoplasma pneumon IgM Pending Urine Pneumococcal Ag Blood Type A Positive Antibody Screen Negative 12/18/24 12/17/24 12/17/24 03:38 21:54 15:38 WBC RBC Hgb Hct MCV MCH MCHC RDW Plt Count MPV Immature Gran % (Auto) Neut % (Auto) Lymph % (Auto) Gray % (Auto) Eos % (Auto) Baso % (Auto) Lymph # (Auto) Gray # (Auto) Eos # (Auto) Baso # (Auto) Abs Immat Gran (auto) Absolute Neuts (auto) Absolute Nucleated RBC Total Counted Neutrophils % (Manual) Band Neutrophils % Lymphocytes % (Manual) Monocytes % (Manual) Eosinophils % (Manual) Nucleated RBC % Abs Neuts (Manual) Abs Lymphs (Manual) Abs Monocytes (Manual) Absolute Eos (Manual) Platelet Estimate Ovalocytes Stanton Cells Schistocytes PT INR APTT Thrombin Time Pending Fibrinogen D-Dimer Sodium Potassium Chloride Carbon Dioxide Anion Gap BUN Creatinine Estim Creat Clear Calc Estimated GFR Glucose Calcium Magnesium Total Bilirubin AST ALT Alkaline Phosphatase C-Reactive Protein NT-Pro-B Natriuret Pep Total Protein Albumin Procalcitonin Vancomycin Trough 15.8 Ur L.pneumophila Ag Pending Mycoplasma pneumon IgM Urine Pneumococcal Ag Pending Blood Type Antibody Screen Preliminary micro results at discharge 12/15/24 17:57 Blood Culture - Preliminary Blood Gram positive cocci cluster is 12/15/24 17:57 Blood Culture - Preliminary Blood Imaging Radiologist's impression: ITS Impressions Chest X-Ray 12/15/24 15:07 IMPRESSION: Large right-sided pleural effusion with adjacent consolidation. Chest/Abdomen/Pelvis CT 12/15/24 16:30 IMPRESSION: Right middle lobe pneumonia with a large right-sided pleural effusion. Massive gaseous distention of the stomach Abdomen X-Ray 12/15/24 18:14 IMPRESSION: Nasogastric tube at the level of the distal esophagus for which advancement of approximately 12 cm is recommended for optimal radiographic placement. Abdomen X-Ray 12/16/24 06:30 Impression: Nonspecific bowel gas pattern. NG tube in place. Chest X-Ray 12/16/24 06:39 Impression: Large right pleural effusion. Minimal haziness left lung base, nonspecific. NG tube in place. Chest X-Ray 12/18/24 05:28 Impression: Whiteout of the right hemithorax, most compatible with large pleural effusion. NG tube in place.
--- NOTE | 2024-12-18 14:34 | PC.NURSE ---
Patient transferred via ambulance to [facility]. Gifty (Mom), Ovidio (Dad), Samantha (sister) updated. Report given to DIMAS Braga.
--- NOTE | 2024-12-19 08:19 | WPDCDIQUERY2 ---
CDI Query Clarification Request Please clarify if sepsis has been ruled in or ruled out. The medical chart reflects the followin-year-old female presents to the emergency department for evaluation for tachycardia and increased shortness of breath with associated back pain and abdominal pain. Patient reports he has had cough and back pain for a few weeks. Patient began having worsening shortness of breath over the last few days. Upon arrival emergency department patient does appear to be uncomfortable and mildly distressed secondary to the pain. 12/16 Sepsis borderline blood pressure. Will give IV albumin. Right middle lobe pneumonia. Procalcitonin is high. Nasal MRSA came back negative. Continue on vancomycin meropenem and doxycycline Right pleural effusion worsened plan for thoracentesis this afternoon To rule out empyema. INR will be reversed with vitamin K. plan for thoracentesis when feasible Large gastric distention with no evidence of obstruction on NG decompression DVT prophylaxis SCDs History of bipolar disorder Factor 5 Leiden Anemia Code status full code transfer summary: Hospital course: Annalise Renteria is a 29 year old female with past medical history of factor 5 deficiency bipolar and GI issues presents the hospital with shortness of breath and chest wall pain. Patient states that she has had a cough and back pain for about a week. She started having shortness of breath over the last few days. She also complains of stomach pain and chronic constipation. Patient states that due to the stomach pains with unable to eat or drink well today. She denies fevers chills. Lab work shows leukocytosis of 14.2, hemoglobin of 10.7 no known history of anemia, troponins are negative, CT chest abdomen pelvis show right middle lobe pneumonia with a large right-sided pleural effusion and massive gas distention of stomach. EKG shows sinus tachycardia at 1119. NG tube was placed in the ER for gastric decompression. She has been started on meropenem. Patient remains tachycardic. Leukocytosis worsened to 20 K. added MRSA coverage with vancomycin and add atypical coverage with doxycycline which was subsequently switched to Levaquin. Continue NG decompression. Leukocytosis continues to worsen with worsening respiratory status. Overnight on 12/18/2024 she was tachypneic and was placed on BiPAP support. Chest x-ray at the time showed complete whiteout right lung. Plan for thoracentesis however her INR came back elevated. She received a dose of vitamin K on 12/17/2024. INR did come down some to 2.0 and had ordered FFP for planned thoracentesis. Due to worsening respiratory status as well as suspected lung abscess/empyema patient was discussed with tertiary care center and was accepted and transferred there for further treatment. 12/16 lactic 0.8 Blood Culture Preliminary 12/18/24-707 Q Organism 1 Gram positive cocci cluster is <Fabi Madrid RN - Last Filed: 12/19/24 08:25> Provider Comments Sepsis ruled in. <Huy Foster MD - Last Filed: 12/20/24 08:04>
[2024-12-20 17:44] LABS: Legionella pneumophila Ag Ur. NOT DETECTED
[2024-12-21 18:59] LABS: Mycoplasma IgM Antibody Titer. 314 U/mL
== END 2024-12-18 14:34 | disposition short-term general hospital (02) | DRG 871 ==
LOC: ANHED 14:41 → ANHIMU 18:08
PROVIDERS: Internal Medicine Pulmonary Disease; Nurse Practitioner Gerontology; Physician Assistant; Admitting Provider Internal Medicine; Emergency Provider Emergency Medicine; Visit Provider Internal Medicine
DX: A41.9 Sepsis, unspecified organism (principal); J18.9 Pneumonia, unspecified organism; D68.51 Activated protein C resistance; J90 Pleural effusion, not elsewhere classified; R06.82 Tachypnea, not elsewhere classified; K58.9 Irritable bowel syndrome, unspecified; F31.9 Bipolar disorder, unspecified; F41.9 Anxiety disorder, unspecified; J45.909 Unspecified asthma, uncomplicated; D64.9 Anemia, unspecified; K59.00 Constipation, unspecified; K31.89 Other diseases of stomach and duodenum
CPT/HCPCS: 36415; 36430; 71045; 71046; 71260; 74018; 74177; 80048; 80053; 80202; 81025; 82040; 82150; 82465; 82607; 82746; 82947; 83540; 83550; 83605; 83615; 83690; 83735; 83880; 84145; 84155; 84443; 84484; 85025; 85380; 85384; 85610; 85670; 85730; 86140; 86738; 86850; 86900; 86901; 87040; 87181; 87449; 87633; 87637; 87641; 87899; 93005; 93306; 94002; 96365; 96372; 96375; 96376; 99285; A9270; J1171; J1885; J1956; J2185; J2470; J2765; J3370; J3430; J7030; J7050; J7120; P9017; P9047; Q9967